=== PATIENT | male | born 1940 | race Caucasian/White ===

== ENCOUNTER 2021-07-25 06:08 | Inpatient (IN) | payer OTHER, MEDICARE ==
[2021-07-20 16:30] LABS: BASOPHILS # (AUTO) 0.1 X10'3 (0-0.2); BASOPHILS % (AUTO) 1.7 % (0-1); EOSINOPHILS # (AUTO) 0.1 X10'3 (0-0.9); EOSINOPHILS % (AUTO) 2.5 % (0-6); LYMPHOCYTES # (AUTO) 1.5 X10'3 (1.1-4.8); LYMPHOCYTES % (AUTO) 29.4 % (21-51); MEAN CORPUSCULAR HEMOGLOBIN 25.9 PG (27.0-31.0); MEAN CORPUSCULAR HGB CONC 33.4 g/dL (33.0-36.5); MEAN CORPUSCULAR VOLUME 77.4 FL (78-98); MEAN PLATELET VOLUME 7.7 FL (7.4-10.4); MONOCYTES # (AUTO) 0.5 X10'3 (0-0.9); MONOCYTES % (AUTO) 8.8 % (2-12); NEUTROPHILS % (AUTO) 57.6 % (42-75); PRE OP HEMATOCRIT 40.5 % (42.0-52.0); PRE OP HEMOGLOBIN 13.5 g/dL (14.0-17.9); PRE OP PLATELET COUNT 220 X10'3 (140-440); RED BLOOD COUNT 5.23 X10'6 (4.70-6.10); RED CELL DISTRIBUTION WIDTH 27.1 % (11.5-14.5)
[2021-07-20 16:41] LABS: ALBUMIN 3.8 G/DL (3.4-5.0); ALBUMIN/GLOBULIN RATIO 1.1 (1.1-1.5); ALKALINE PHOSPHATASE 70 IU/L (46-116); BLOOD UREA NITROGEN 23 MG/DL (7-18); BUN/CREATININE RATIO 12.3 (5.4-32.0); CALCIUM 9.1 MG/DL (8.5-10.1); CHLORIDE 105 MMOL/L (99-107); CREATININE 1.87 MG/DL (0.60-1.10); PRE OP ALT 29 U/L (30-65); PRE OP ANION GAP 10 (8-16); PRE OP AST 21 U/L (10-37); PRE OP BILIRUB, TOTAL 0.3 MG/DL (0.0-1.0); PRE OP GLUCOSE 95 MG/DL (70-104); PRE OP POTASSIUM 4.3 MMOL/L (3.4-5.1); PRE OP SODIUM 138 MMOL/L (135-145); TOTAL CARBON DIOXIDE 22.8 MMOL/L (24-32); TOTAL PROTEIN 7.2 G/DL (6.4-8.2); eGFR 35 ML/MIN
[2021-07-20 19:33] LABS: PLATELET ESTIMATE NORMAL
[2021-07-20 19:34] LABS: ANISOCYTOSIS 3+; MICROCYTOSIS 1+
[2021-07-20 19:35] LABS: ELLIPTOCYTES FEW; SCHISTOCYTES FEW
[2021-07-20 19:36] LABS: LARGE PLATELETS FEW
[~2021-07-25] VITALS: Ht 170.2 cm; Wt 168.0 kg
[2021-07-25] VITALS (29 sets, daily range): BP systolic 90–130; BP diastolic 38–78
[~2021-07-25 06:08] MED LIST: ASPI-1071 PO; FERR-119 PO; cefoxitin sod inj 2,000 MG in dextrose 5%-water 100 ML IV ONE; famotidine 20mg tablet PO ONE; ringers solution, lacted 1,000 ML IV SCH
[2021-07-25] MEDS ORDERED: fentaNYL/PF 50MCG/1 ML 2ML syringe ONE (07:16)
[2021-07-25] MEDS ORDERED: MIDAZolam 1 MG/ML 5ML VIAL ONE (07:16)
[2021-07-25 08:02] LABS: ALANINE AMINOTRANSFERASE 8 U/L (12-78); ALBUMIN 3.3 G/DL (3.4-5.0); ALBUMIN/GLOBULIN RATIO 1.1 (1.1-1.5); ALKALINE PHOSPHATASE 59 IU/L (46-116); ANION GAP 8 (8-16); ASPARTATE AMINO TRANSFERASE 15 U/L (10-37); BILIRUBIN,TOTAL 0.4 MG/DL (0.1-1.0); BLOOD UREA NITROGEN 20 MG/DL (7-18); BUN/CREATININE RATIO 11.5 (5.4-32.0); CALCIUM 9.1 MG/DL (8.5-10.1); CHLORIDE 109 MMOL/L (99-107); CREATININE 1.74 MG/DL (0.60-1.10); GLUCOSE 95 MG/DL (70-104); POTASSIUM 4.1 MMOL/L (3.5-5.1); SODIUM 142 MMOL/L (135-145); TOTAL CARBON DIOXIDE 24.8 MMOL/L (24-32); TOTAL PROTEIN 6.4 G/DL (6.4-8.2); eGFR 38 ML/MIN
[2021-07-25] MEDS ORDERED: proCHLORperazine 10 MG/2 ml inj IV PRN (08:40)
[2021-07-25] MEDS ORDERED: ondansetron/PF 4mg/2ml inj IV PRN ×2 (08:40→15:20)
[2021-07-25] MEDS ORDERED: morphine 4 MG/ML inj SYRINge IV PRN (08:40)
[2021-07-25] MEDS ORDERED: meperidine/PF 25mg/ml syringe IV PRN ×3 (08:40)
[2021-07-25] MEDS ORDERED: morphine 2 MG/ML inj. syringe IV PRN (08:40)
[2021-07-25] MEDS ORDERED: ringers solution, lacted 1,000 ML IV SCH (08:40)
--- NOTE | 2021-07-25 09:55 | NUR ---
RECEIVED PT FROM GI NURSE TO 246A VIA [facility]. SLEEPING, AWAKENS EASILY. FOLLOWS COMMANDS AND ANSWERS QUESTIONS APPROPRIATELY. VSS (97/55, 46, 15, 100% RA). ALON AT THE BEDSIDE. IV PATENT RT WRIST WITH LR 50MLS/HR ON THE PUMP.
[2021-07-25] MEDS ORDERED: LIDOcaine 1% 30ml preserv. free vial ONE (10:19)
[2021-07-25] MEDS ORDERED: BUPIVAcaine/PF 2.5 mg/ml (0.25%) 30ml vial ONE (10:19)
[2021-07-25] MEDS ORDERED: BUPIVAcaine/PF 2.5mg/ml (0.25%) 10ml vial ONE (10:20)
[2021-07-25] MEDS ORDERED: BUPIVACAINE liposomal/PF 13.3 MG/ML vial IM ONE (10:20)
[2021-07-25] MEDS ORDERED: midazolam 1 mg/ML 2ml injection ONE (10:25)
[2021-07-25] MEDS ORDERED: fentaNYL /PF 50mcg/ml 5ml ampule ONE (10:26)
[2021-07-25] MEDS ORDERED: propofol inj 20 ML IV ONE (11:00)
[2021-07-25] MEDS ORDERED: LIDOcaine 2% (20mg/ml) 5ml vial ONE (11:00)
[2021-07-25] MEDS ORDERED: dexamethasone sod phosphate 4mg/ml inj. ONE (11:12)
[2021-07-25] MEDS ORDERED: desflurane 240ml liquid inh. IH ONE (11:12)
[2021-07-25] MEDS ORDERED: rocuronium 10mg/ml inj IV ONE (11:25)
[2021-07-25] MEDS ORDERED: ondansetron/PF 4mg/2ml inj ONE (14:28)
[2021-07-25] MEDS ORDERED: acetaminophen 1,000mg/100ml IV 100 ML IV ONE (14:46)
--- NOTE | 2021-07-25 15:03 | NUR ---
Received from OR via BED IN STABLE CONDITION , accompanied by Anesthesiologist and GEAR MILLING MACHINE SET UP OPERATOR report given by GEAR MILLING MACHINE SET UP OPERATOR AND Anesthesiolgist. Addendum: 07/25/21 at 1522 by Nilda Grossman RN Amended: Links added.
[2021-07-25] MEDS ORDERED: naloxone 0.4 mg/ml inj IV PRN (15:20)
[2021-07-25] MEDS: HYDROmorph./NS 0.2 mg/ml CADD 100 ML IV SCH ×5 (16:25→23:05)
--- NOTE | 2021-07-25 17:23 | NUR ---
PATIENT DISCHARGED FROM PACU IN STABLE CONDITION AFTER REPORT GIVEN. PATIENT WAS TRANSFERRED VIA BED TO ROOM 356A WITH TEACHERS ASSISTANT AND RADHA. Addendum: 07/25/21 at 1831 by Nilda Grossman RN Amended: Links added.
--- NOTE | 2021-07-25 18:00 | NUR ---
Patient in room SOTO 356. I have received report from LEOBARDO Ventura and had the opportunity to ask questions and assume patient care.
[2021-07-25] MEDS: Potassium Cl inj 20 MEQ in ringers solution, lacted 1,000 ML IV SCH ×2 (23:01→23:25)
[2021-07-26 00:03] VITALS: BP 117/56
[2021-07-26] MEDS: HYDROmorph./NS 0.2 mg/ml CADD 100 ML IV SCH ×12 (01:00→23:00)
[2021-07-26 04:00] VITALS: BP 111/48
--- NOTE | 2021-07-26 06:06 | NUR ---
I agree with LEOBARDO Robersonspooler operator, assessments, and report given to LEOBARDO Kaye
--- NOTE | 2021-07-26 06:20 | NUR ---
Patient in room SOTO 356. I have received report from RACHELLE BOOTH and had the opportunity to ask questions and assume patient care.
[2021-07-26 06:28] LABS: BASOPHILS % (AUTO) 0.1 % (0-1); EOSINOPHILS % (AUTO) 0 % (0-6); HEMATOCRIT 38.7 % (42.0-52.0); HEMOGLOBIN 12.9 g/dl (14.0-17.9); LYMPHOCYTES # (AUTO) 0.6 X10'3 (1.1-4.8); LYMPHOCYTES % (AUTO) 6.3 % (21-51); MEAN CORPUSCULAR HEMOGLOBIN 26.3 PG (27.0-31.0); MEAN CORPUSCULAR HGB CONC 33.4 g/dL (33.0-36.5); MEAN CORPUSCULAR VOLUME 78.6 FL (78-98); MEAN PLATELET VOLUME 8.8 FL (7.4-10.4); MONOCYTES # (AUTO) 0.7 X10'3 (0-0.9); MONOCYTES % (AUTO) 7.6 % (2-12); NEUTROPHILS # (AUTO) 7.7 X10'3 (1.8-7.7); PLATELET COUNT 190 X10'3 (140-440); RED BLOOD COUNT 4.93 X10'6 (4.70-6.10); RED CELL DISTRIBUTION WIDTH 26.7 % (11.5-14.5)
--- NOTE | 2021-07-26 06:37 | NUR ---
Problems reprioritized. Patient report given, questions answered & plan of care reviewed with LEOBARDO Kaye.
[2021-07-26 06:48] LABS: ALBUMIN 2.6 G/DL (3.4-5.0); ANION GAP 12 (8-16); BLOOD UREA NITROGEN 19 MG/DL (7-18); BUN/CREATININE RATIO 13.4 (5.4-32.0); CALCIUM 8.2 MG/DL (8.5-10.1); CHLORIDE 109 MMOL/L (99-107); CREATININE 1.42 MG/DL (0.60-1.10); GLUCOSE 174 MG/DL (70-104); POTASSIUM 3.9 MMOL/L (3.5-5.1); SODIUM 142 MMOL/L (135-145); TOTAL CARBON DIOXIDE 20.6 MMOL/L (24-32); eGFR 48 ML/MIN
[2021-07-26 08:00] LABS: ANISOCYTOSIS 3+; MICROCYTOSIS 1+; PLATELET ESTIMATE NORMAL
[2021-07-26 08:01] LABS: ELLIPTOCYTES FEW
[2021-07-26 08:02] LABS: POIKILOCYTOSIS 1+
[2021-07-26 08:03] LABS: LARGE PLATELETS FEW
[2021-07-26 08:04] LABS: SCHISTOCYTES FEW
[2021-07-26] MEDS: enoxaparin 40mg/0.4ml syringe SQ SCH (08:13)
[2021-07-26] MEDS: pantoprazole IV 40 MG in dextrose 5%-water 100 ML IV SCH (08:13)
[2021-07-26] MEDS: Potassium Cl inj 20 MEQ in ringers solution, lacted 1,000 ML IV SCH (08:13)
[2021-07-26] MEDS: aspirin 81mg, enteric-coated 1 TAB TABLET.DR PO SCH (08:13)
[2021-07-26 09:01] VITALS: BP 108/54
[2021-07-26] MEDS: potassium 20mEq/D5LR 1,000 ML IV SCH ×2 (09:30→17:48)
[2021-07-26 11:55] VITALS: BP 98/42
--- NOTE | 2021-07-26 18:23 | NUR ---
Problems reprioritized. Patient report given, questions answered & plan of care reviewed with Rosaura singh.
[2021-07-26 20:00] VITALS: BP 112/53
[2021-07-26 23:38] VITALS: BP 112/53
[2021-07-27] VITALS: BP 108/57
[2021-07-27] MEDS: HYDROmorph./NS 0.2 mg/ml CADD 100 ML IV SCH ×12 (01:00→23:00)
[2021-07-27] MEDS: potassium 20mEq/D5LR 1,000 ML IV SCH ×3 (01:30→12:32)
--- NOTE | 2021-07-27 05:37 | NUR ---
Arza discontinued , monitor for voiding .
--- NOTE | 2021-07-27 06:19 | NUR ---
Report given , questions answered and plan of care reviewed with Belem BOOTH .
[2021-07-27 06:30] LABS: BASOPHILS % (AUTO) 0.2 % (0-1); EOSINOPHILS % (AUTO) 0.1 % (0-6); HEMATOCRIT 36.7 % (42.0-52.0); HEMOGLOBIN 12.2 g/dl (14.0-17.9); LYMPHOCYTES # (AUTO) 0.9 X10'3 (1.1-4.8); LYMPHOCYTES % (AUTO) 12.8 % (21-51); MEAN CORPUSCULAR HGB CONC 33.3 g/dL (33.0-36.5); MEAN CORPUSCULAR VOLUME 78.3 FL (78-98); MEAN PLATELET VOLUME 8.1 FL (7.4-10.4); MONOCYTES # (AUTO) 0.6 X10'3 (0-0.9); MONOCYTES % (AUTO) 8.2 % (2-12); NEUTROPHILS # (AUTO) 5.8 X10'3 (1.8-7.7); NEUTROPHILS % (AUTO) 78.7 % (42-75); PLATELET COUNT 177 X10'3 (140-440); RED BLOOD COUNT 4.68 X10'6 (4.70-6.10); RED CELL DISTRIBUTION WIDTH 27.5 % (11.5-14.5); WHITE BLOOD COUNT 7.4 X10'3 (4.5-11.0)
--- NOTE | 2021-07-27 06:38 | NUR ---
Patient in room SOTO 356. I have received report from rigo singh and had the opportunity to ask questions and assume patient care.
[2021-07-27 06:41] LABS: ALBUMIN 2.2 G/DL (3.4-5.0); ANION GAP 9 (8-16); BLOOD UREA NITROGEN 17 MG/DL (7-18); BUN/CREATININE RATIO 12.5 (5.4-32.0); CALCIUM 8.4 MG/DL (8.5-10.1); CHLORIDE 108 MMOL/L (99-107); CREATININE 1.36 MG/DL (0.60-1.10); GLUCOSE 127 MG/DL (70-104); POTASSIUM 3.3 MMOL/L (3.5-5.1); SODIUM 142 MMOL/L (135-145); eGFR 50 ML/MIN
[2021-07-27 07:04] VITALS: BP 122/45
[2021-07-27] MEDS: pantoprazole IV 40 MG in dextrose 5%-water 100 ML IV SCH (07:30)
[2021-07-27] MEDS: aspirin 81mg, enteric-coated 1 TAB TABLET.DR PO SCH (07:30)
[2021-07-27] MEDS: enoxaparin 40mg/0.4ml syringe SQ SCH (07:30)
[2021-07-27] MEDS ORDERED: Potassium Cl inj 40 MEQ in sodium chloride 0.45% 500ml 500 ML IV ONE (11:40)
[2021-07-27] MEDS: potassium CL 10mEq/100ml bag 100 ML IV SCH ×4 (12:30→17:44)
--- NOTE | 2021-07-27 12:57 | NUR ---
MIDLINE IODOFORM PACKING DCd AND WOUND LEFT OPEN TO AIR PER DR ARORA ORDER, COLOSTOMY AND ILEOSTOMY PACKED WITH MOIST GAUZE PER ORDER.
[2021-07-27 13:09] VITALS: BP 123/53
--- NOTE | 2021-07-27 18:17 | NUR ---
Problems reprioritized. Patient report given, questions answered & plan of care reviewed with SALAS BOOTH.
[2021-07-27 20:00] VITALS: BP 141/62
[2021-07-28] VITALS: BP 128/51
[2021-07-28] MEDS: potassium 20mEq/D5LR 1,000 ML IV SCH ×3 (00:53→17:57)
[2021-07-28] MEDS: HYDROmorph./NS 0.2 mg/ml CADD 100 ML IV SCH ×12 (01:00→23:00)
[2021-07-28] MEDS: CADD PCA waste documentation MC PRN (02:36)
--- NOTE | 2021-07-28 06:37 | NUR ---
rEPORT GIVEN , QUESTIONS ANSWERED AND PLAN OF CARE REVIEWED WITH Ck singh .
--- NOTE | 2021-07-28 06:37 | NUR ---
Patient in room SOTO 356. I have received report from Rosaura BOOTH and had the opportunity to ask questions and assume patient care.
[2021-07-28 06:42] LABS: BASOPHILS % (AUTO) 0.2 % (0-1); EOSINOPHILS % (AUTO) 0 % (0-6); HEMATOCRIT 37.6 % (42.0-52.0); HEMOGLOBIN 12.4 g/dl (14.0-17.9); LYMPHOCYTES # (AUTO) 1.1 X10'3 (1.1-4.8); LYMPHOCYTES % (AUTO) 14.7 % (21-51); MEAN CORPUSCULAR HEMOGLOBIN 25.9 PG (27.0-31.0); MEAN CORPUSCULAR VOLUME 78.4 FL (78-98); MEAN PLATELET VOLUME 8.1 FL (7.4-10.4); MONOCYTES # (AUTO) 0.7 X10'3 (0-0.9); MONOCYTES % (AUTO) 8.6 % (2-12); NEUTROPHILS % (AUTO) 76.5 % (42-75); PLATELET COUNT 195 X10'3 (140-440); RED CELL DISTRIBUTION WIDTH 26.8 % (11.5-14.5); WHITE BLOOD COUNT 7.8 X10'3 (4.5-11.0)
[2021-07-28 06:55] LABS: ALBUMIN 2.1 G/DL (3.4-5.0); ANION GAP 6 (8-16); BLOOD UREA NITROGEN 13 MG/DL (7-18); BUN/CREATININE RATIO 10.3 (5.4-32.0); CALCIUM 8.4 MG/DL (8.5-10.1); CHLORIDE 104 MMOL/L (99-107); CREATININE 1.26 MG/DL (0.60-1.10); GLUCOSE 142 MG/DL (70-104); MAGNESIUM 1.5 MG/DL (1.5-2.4); POTASSIUM 3.1 MMOL/L (3.5-5.1); SODIUM 137 MMOL/L (135-145); TOTAL CARBON DIOXIDE 27.5 MMOL/L (24-32); eGFR 55 ML/MIN
[2021-07-28 07:00] VITALS: BP 129/54
[2021-07-28] MEDS: aspirin 81mg, enteric-coated 1 TAB TABLET.DR PO SCH (09:28)
[2021-07-28] MEDS: pantoprazole IV 40 MG in dextrose 5%-water 100 ML IV SCH (09:28)
[2021-07-28] MEDS: enoxaparin 40mg/0.4ml syringe SQ SCH (09:29)
[2021-07-28 11:00] VITALS: BP 116/56
[2021-07-28] MEDS: potassium CL 10mEq/100ml bag 100 ML IV SCH ×4 (11:07→14:12)
--- NOTE | 2021-07-28 17:32 | NUR ---
Wound dressing on the right abdomen was changed due to dressing soaked with serosanguinous drainage.
--- NOTE | 2021-07-28 18:35 | NUR ---
Problems reprioritized. Patient report given, questions answered & plan of care reviewed with Rosaura BOOTH.
[2021-07-28 19:01] VITALS: BP 123/55
[2021-07-29 00:02] VITALS: BP 131/55
[2021-07-29] MEDS: HYDROmorph./NS 0.2 mg/ml CADD 100 ML IV SCH ×5 (01:00→08:59)
[2021-07-29] MEDS: potassium 20mEq/D5LR 1,000 ML IV SCH ×2 (01:30→08:49)
[2021-07-29 06:24] LABS: BASOPHILS % (AUTO) 0.3 % (0-1); EOSINOPHILS # (AUTO) 0.1 X10'3 (0-0.9); EOSINOPHILS % (AUTO) 1.9 % (0-6); HEMATOCRIT 40.8 % (42.0-52.0); HEMOGLOBIN 13.7 g/dl (14.0-17.9); MEAN CORPUSCULAR HEMOGLOBIN 26.5 PG (27.0-31.0); MEAN CORPUSCULAR HGB CONC 33.5 g/dL (33.0-36.5); MEAN CORPUSCULAR VOLUME 79.1 FL (78-98); MEAN PLATELET VOLUME 8.6 FL (7.4-10.4); MONOCYTES # (AUTO) 0.7 X10'3 (0-0.9); MONOCYTES % (AUTO) 10.2 % (2-12); NEUTROPHILS % (AUTO) 72.6 % (42-75); PLATELET COUNT 196 X10'3 (140-440); RED BLOOD COUNT 5.16 X10'6 (4.70-6.10); RED CELL DISTRIBUTION WIDTH 26.5 % (11.5-14.5); WHITE BLOOD COUNT 6.9 X10'3 (4.5-11.0)
[2021-07-29 06:31] LABS: ALBUMIN 2.1 G/DL (3.4-5.0); ANION GAP 5 (8-16); BLOOD UREA NITROGEN 11 MG/DL (7-18); BUN/CREATININE RATIO 9.2 (5.4-32.0); CALCIUM 8.7 MG/DL (8.5-10.1); CHLORIDE 103 MMOL/L (99-107); CREATININE 1.19 MG/DL (0.60-1.10); GLUCOSE 111 MG/DL (70-104); POTASSIUM 4.1 MMOL/L (3.5-5.1); SODIUM 137 MMOL/L (135-145); TOTAL CARBON DIOXIDE 28.7 MMOL/L (24-32); eGFR 59 ML/MIN
--- NOTE | 2021-07-29 06:40 | NUR ---
Report given , questions answered and plan of care reviewed with Casie BOOTH .
--- NOTE | 2021-07-29 06:50 | NUR ---
Patient in room SOTO 356. I have received report from LEOBARDO Kaplan and had the opportunity to ask questions and assume patient care.
[2021-07-29 07:00] VITALS: BP 114/76
[2021-07-29] MEDS: aspirin 81mg, enteric-coated 1 TAB TABLET.DR PO SCH (08:46)
[2021-07-29] MEDS: enoxaparin 40mg/0.4ml syringe SQ SCH (08:46)
[2021-07-29] MEDS: pantoprazole IV 40 MG in dextrose 5%-water 100 ML IV SCH (08:47)
[2021-07-29 11:00] VITALS: BP 102/43
[2021-07-29] MEDS ORDERED: levoFLOXACIN 500mg tablet PO SCH (11:00)
[2021-07-29] MEDS ORDERED: potassium Cl 20 mEq SR tablet PO PRN (11:45)
[2021-07-29] MEDS ORDERED: potassium CL 10mEq/100ml bag 100 ML IV PRN (11:45)
[2021-07-29] MEDS ORDERED: magnesium Cl slow-release 64mg tablet PO PRN (11:45)
[2021-07-29] MEDS ORDERED: magnesium 2GM in 50ml NS 50 ML IV PRN (11:45)
[2021-07-29] MEDS ORDERED: magnesium 4gm in 100ml NS 100 ML IV PRN (11:45)
[2021-07-29] MEDS: normal saline 1000ml 1,000 ML IV SCH ×2 (11:55→21:30)
[2021-07-29] MEDS: CADD PCA waste documentation MC PRN (11:57)
[2021-07-29 12:21] LABS: MAGNESIUM 1.6 MG/DL (1.5-2.4)
[2021-07-29] MEDS: HYDROcodone/acetaminophen 5mg/325mg tablet PO PRN ×2 (13:51→17:58)
[2021-07-29] MEDS: HYDROmorphone inj. 0.5 MG/0.5 ML DISP.SYRIN IV PRN ×2 (15:06→20:27)
--- NOTE | 2021-07-29 18:30 | NUR ---
Problems reprioritized. Patient report given, questions answered & plan of care reviewed with LEOBARDO Kaplan.
[2021-07-29 20:00] VITALS: BP 113/52
[2021-07-29] MEDS: K and/or MAG REPLACEMENT MC SCH (20:00)
--- NOTE | 2021-07-29 23:17 | NUR ---
PATIENT HAD A LARGE LIQUID STOOL TONIGHT , DARK BROWNISH GREEN , NO S/S OF BLEEDING . PATIENT TRANSFERRED FROM THE BED TO THE BEDSIDE COMMODE WITH STANDBY ASSIST , DENIES PAIN , NO DIZZINESS OR VERTIGO NOTED .
[2021-07-30] VITALS (18 sets, daily range): BP systolic 94–143; BP diastolic 45–77
--- NOTE | 2021-07-30 05:55 | NUR ---
PATIENT CALLED THIS TO THE ROOM ANS SAID HIS SHEETS WERE WET , DARK BROWN DRAINAGE WAS OBSERVED ONHIS SHEETS . brOWN DRAINAGE WAS OBSERVED SEEPING FROM HIS MIDLINE INCISION , IT SMELLED LIKE FECAL MATTER . DR HURD MADE AWARE and he will see patient in am .Midline covered with clean dressing .
[2021-07-30 06:26] LABS: ALBUMIN 1.9 G/DL (3.4-5.0); ANION GAP 9 (8-16); BLOOD UREA NITROGEN 24 MG/DL (7-18); BUN/CREATININE RATIO 17.6 (5.4-32.0); CHLORIDE 106 MMOL/L (99-107); CREATININE 1.36 MG/DL (0.60-1.10); GLUCOSE 115 MG/DL (70-104); MAGNESIUM 1.6 MG/DL (1.5-2.4); POTASSIUM 3.3 MMOL/L (3.5-5.1); SODIUM 141 MMOL/L (135-145); TOTAL CARBON DIOXIDE 26.4 MMOL/L (24-32); eGFR 50 ML/MIN
--- NOTE | 2021-07-30 06:30 | NUR ---
Patient in room PCU 3026. I have received report from LEOBARDO Kaplan and had the opportunity to ask questions and assume patient care.
[2021-07-30 06:43] LABS: HEMOGLOBIN 13.2 g/dl (14.0-17.9); RED CELL DISTRIBUTION WIDTH 26.1 % (11.5-14.5)
[2021-07-30 06:44] LABS: BASOPHILS % (AUTO) 0.2 % (0-1); EOSINOPHILS % (AUTO) 0.7 % (0-6); HEMATOCRIT 39.4 % (42.0-52.0); LYMPHOCYTES # (AUTO) 0.7 X10'3 (1.1-4.8); LYMPHOCYTES % (AUTO) 15.6 % (21-51); MEAN CORPUSCULAR HEMOGLOBIN 26.5 PG (27.0-31.0); MEAN CORPUSCULAR HGB CONC 33.4 g/dL (33.0-36.5); MEAN CORPUSCULAR VOLUME 79.2 FL (78-98); MEAN PLATELET VOLUME 8.5 FL (7.4-10.4); MONOCYTES # (AUTO) 0.6 X10'3 (0-0.9); MONOCYTES % (AUTO) 13.4 % (2-12); NEUTROPHILS # (AUTO) 3.3 X10'3 (1.8-7.7); NEUTROPHILS % (AUTO) 70.1 % (42-75); PLATELET COUNT 221 X10'3 (140-440); RED BLOOD COUNT 4.97 X10'6 (4.70-6.10); WHITE BLOOD COUNT 4.7 X10'3 (4.5-11.0)
[2021-07-30] MEDS: K and/or MAG REPLACEMENT MC SCH ×2 (07:28→20:14)
[2021-07-30] MEDS: normal saline 1000ml 1,000 ML IV SCH ×3 (07:32→21:30)
[2021-07-30] MEDS: pantoprazole IV 40 MG in dextrose 5%-water 100 ML IV SCH (07:34)
[2021-07-30] MEDS: aspirin 81mg, enteric-coated 1 TAB TABLET.DR PO SCH (07:34)
[2021-07-30] MEDS: potassium Cl 20 mEq SR tablet PO PRN ×2 (07:39→20:11)
[2021-07-30] MEDS: enoxaparin 40mg/0.4ml syringe SQ SCH (07:40)
[2021-07-30 07:47] LABS: PLATELET ESTIMATE NORMAL
[2021-07-30 07:48] LABS: ANISOCYTOSIS 3+; HYPOCHROMASIA 1+; MICROCYTOSIS 1+
[2021-07-30 07:49] LABS: POLYCHROMASIA FEW; SCHISTOCYTES FEW
[2021-07-30 10:01] LABS: APTT 33 SECONDS (22-32)
[2021-07-30 10:03] LABS: ALANINE AMINOTRANSFERASE 22 U/L (12-78); ALBUMIN 1.9 G/DL (3.4-5.0); ALBUMIN/GLOBULIN RATIO 0.6 (1.1-1.5); ALKALINE PHOSPHATASE 75 IU/L (46-116); ASPARTATE AMINO TRANSFERASE 19 U/L (10-37); BILIRUBIN,TOTAL 0.7 MG/DL (0.1-1.0); BLOOD UREA NITROGEN 24 MG/DL (7-18); BUN/CREATININE RATIO 18.3 (5.4-32.0); CALCIUM 7.8 MG/DL (8.5-10.1); CHLORIDE 106 MMOL/L (99-107); CREATININE 1.31 MG/DL (0.60-1.10); GLUCOSE 109 MG/DL (70-104); POTASSIUM 3.2 MMOL/L (3.5-5.1); TOTAL CARBON DIOXIDE 28.5 MMOL/L (24-32); TOTAL PROTEIN 5.3 G/DL (6.4-8.2); eGFR 52 ML/MIN
[2021-07-30 10:07] LABS: ANION GAP 7 (8-16); SODIUM 141 MMOL/L (135-145)
--- NOTE | 2021-07-30 10:43 | NUR ---
Initial: Pt admit for colostomy and ileostomy takedown which was performed 07/25 per EMR. Per I&O pt with 3 BMs 07/29. drywall taper helper indicates pt with large liquid stool 07/29. Pt continues on ice chips, sips, and popsicles for diet order, now day 5 with insufficient nutrition intake r/t diet order. Recommend diet advancement to low fiber as medically indicated as bowel function appears to be improving at this time, otherwise pt would benefit from nutrition support IF PO diet unable to be advanced. Will continue to follow closely and make recommendations as appropriate. Recommendations: 1) Advance to low fiber diet as medically indicated in view of recent GI surgery 2) Initiate nutrition support IF PO diet unable to be advanced; currently 5 days with insufficient nutrition 3) Bowel care per MD 4) Weekly scaled weights Addendum: 07/30/21 at [address] Amended: Links added.
--- NOTE | 2021-07-30 10:45 | NUR ---
Report given to OR bellows charger assembler
[2021-07-30] MEDS: piperacillin/tazo 3.375gm/50ml 50 ML IV SCH ×3 (10:53→23:42)
--- NOTE | 2021-07-30 10:59 | NUR ---
BG pre surg 86
[2021-07-30] MEDS ORDERED: propofol inj 20 ML IV ONE (11:17)
[2021-07-30] MEDS ORDERED: rocuronium 10mg/ml inj IV ONE (11:17)
[2021-07-30] MEDS ORDERED: midazolam 1 mg/ML 2ml injection ONE (11:17)
[2021-07-30] MEDS ORDERED: fentaNYL /PF 50mcg/ml 5ml ampule ONE (11:17)
[2021-07-30] MEDS ORDERED: neostigmine methylsulfate 1 MG/ML 10ml vial ONE (12:22)
[2021-07-30] MEDS ORDERED: glycopyrrolate 0.2mg/ml inj ONE (12:36)
--- NOTE | 2021-07-30 12:40 | NUR ---
Received from OR via , accompanied by Anesthesiologist DR MAK and report given by Anesthesiolgist. PT PTESENTS WITH 20 G RIGHT AC, 18G RUFGR FOREARM, ABD DRESSING DRY AND INTACT, HR 143 DR MAK AT BEDSIDE GAVE 5MG METOPROLOL WITH HR NOW DOWN IN TO THE 70'S. VSS. Addendum: 07/30/21 at 1259 by Luli Márquez RN, RN Amended: Links added.
[2021-07-30] MEDS ORDERED: metoprolol tartrate 1mg/ml inj IV ONE (12:44)
[2021-07-30] MEDS ORDERED: meperidine/PF 25mg/ml syringe IV PRN ×2 (12:55)
[2021-07-30] MEDS ORDERED: ondansetron/PF 4mg/2ml inj IV PRN (12:55)
[2021-07-30] MEDS ORDERED: morphine 2 MG/ML inj. syringe IV PRN (12:55)
[2021-07-30] MEDS ORDERED: labetalol 20mg/4ml (5mg/ml) syringe IV PRN (12:55)
[2021-07-30] MEDS ORDERED: proCHLORperazine 10 MG/2 ml inj IV PRN (12:55)
[2021-07-30] MEDS ORDERED: ringers solution, lacted 1,000 ML IV SCH (12:55)
[2021-07-30] MEDS ORDERED: morphine 4 MG/ML inj SYRINge IV PRN (12:55)
[2021-07-30] MEDS: meperidine/PF 25mg/ml syringe IV PRN ×3 (13:10→14:29)
--- NOTE | 2021-07-30 13:38 | NUR ---
PER DR SWETHA MYLES FOR PT TO GO TO [facility] ON TELE. PT CURRENTLY IN [facility]. PULL TAB DEALER NOTIFIED AND WILL BE PUTTING IN THE NEW ORDERS FOR PT TO GO TO [facility]. PULL TAB DEALER TO CALL BACK FOR NEW ROOM ASSIGNMENT. Addendum: 07/30/21 at 1349 by Luli Márquez RN, RN Amended: Links added.
--- NOTE | 2021-07-30 14:00 | NUR ---
DR SANTAMARIA AT BEDSIDE EVALUATING PT. OLK FOR PT TO GO TO PCU DUE TO PVC'S BIGEMINY. Addendum: 07/30/21 at 1500 by Luli Márquez RN, RN Amended: Links added.
--- NOTE | 2021-07-30 14:50 | NUR ---
Report called to receiving nurse KISHA BOOTH. PT HAVING PVC'S BIGEMINY. PT'S TRANSFERED FROM ROOM 356 SURGICAL TO PCU 3026B.Transferred via HOSPITAL BED WITH MONITOR. PT BELONGINGS TRANSFERED FROM SURGICAL TO 3026B. Belongings. BED IN LOW LOCKED POSTION, PT GIVEN CALL LIGHT. Special Issues communicated to receiving nurse. Addendum: 07/30/21 at 1500 by Luli Márquez RN, RN Amended: Links added.
[2021-07-30] MEDS: HYDROmorphone inj. 0.5 MG/0.5 ML DISP.SYRIN IV PRN ×2 (16:30→21:25)
[2021-07-30] MEDS: HYDROcodone/acetaminophen 5mg/325mg tablet PO PRN ×2 (19:57→23:56)
[2021-07-31 02:00] VITALS: BP 117/49
[2021-07-31] MEDS: HYDROmorphone inj. 0.5 MG/0.5 ML DISP.SYRIN IV PRN (03:43)
[2021-07-31] MEDS: HYDROcodone/acetaminophen 5mg/325mg tablet PO PRN (05:29)
[2021-07-31 06:00] VITALS: BP 106/50
[2021-07-31] MEDS: pantoprazole IV 40 MG in dextrose 5%-water 100 ML IV SCH (07:28)
[2021-07-31] MEDS: aspirin 81mg, enteric-coated 1 TAB TABLET.DR PO SCH (07:29)
[2021-07-31] MEDS: enoxaparin 40mg/0.4ml syringe SQ SCH (07:30)
[2021-07-31] MEDS: potassium Cl 20 mEq SR tablet PO PRN (07:35)
[2021-07-31] MEDS: K and/or MAG REPLACEMENT MC SCH ×2 (08:00→20:33)
[2021-07-31] MEDS: piperacillin/tazo 3.375gm/50ml 50 ML IV SCH ×2 (08:00→16:38)
[2021-07-31] MEDS ORDERED: CADD PCA waste documentation MC PRN (09:10)
[2021-07-31] MEDS ORDERED: naloxone 0.4 mg/ml inj IV PRN (09:10)
[2021-07-31] MEDS: HYDROmorph./NS 0.2 mg/ml CADD 100 ML IV SCH ×8 (10:49→23:00)
[2021-07-31 11:00] VITALS: BP 106/45
[2021-07-31] MEDS: normal saline 1000ml 1,000 ML IV SCH (14:35)
[2021-07-31 15:00] VITALS: BP 111/46
[2021-07-31 18:00] VITALS: BP 127/64
[2021-07-31 22:00] VITALS: BP 124/58
[2021-08-01] MEDS: piperacillin/tazo 3.375gm/50ml 50 ML IV SCH ×3 (00:30→19:21)
[2021-08-01] MEDS: normal saline 1000ml 1,000 ML IV SCH ×3 (00:32→22:42)
[2021-08-01] MEDS: HYDROmorph./NS 0.2 mg/ml CADD 100 ML IV SCH ×12 (01:00→23:00)
[2021-08-01] MEDS: Melatonin 3mg tablet PO PRN (01:23)
[2021-08-01 02:00] VITALS: BP 118/58
[2021-08-01 06:00] VITALS: BP 142/62
[2021-08-01] MEDS: aspirin 81mg, enteric-coated 1 TAB TABLET.DR PO SCH (07:41)
[2021-08-01] MEDS: pantoprazole IV 40 MG in dextrose 5%-water 100 ML IV SCH (07:41)
[2021-08-01] MEDS: enoxaparin 40mg/0.4ml syringe SQ SCH (07:45)
[2021-08-01 09:34] LABS: ALBUMIN 1.9 G/DL (3.4-5.0); ANION GAP 12 (8-16); BLOOD UREA NITROGEN 21 MG/DL (7-18); BUN/CREATININE RATIO 15.7 (5.4-32.0); CALCIUM 8.7 MG/DL (8.5-10.1); CHLORIDE 103 MMOL/L (99-107); CREATININE 1.34 MG/DL (0.60-1.10); GLUCOSE 129 MG/DL (70-104); POTASSIUM 3.3 MMOL/L (3.5-5.1); SODIUM 138 MMOL/L (135-145); TOTAL CARBON DIOXIDE 23.2 MMOL/L (24-32); eGFR 51 ML/MIN
[2021-08-01 09:40] LABS: BASOPHILS % (AUTO) 0 % (0-1); EOSINOPHILS % (AUTO) 0.1 % (0-6); HEMOGLOBIN 13.4 g/dl (14.0-17.9); LYMPHOCYTES # (AUTO) 0.4 X10'3 (1.1-4.8); LYMPHOCYTES % (AUTO) 7.9 % (21-51); MEAN CORPUSCULAR HEMOGLOBIN 26.3 PG (27.0-31.0); MEAN CORPUSCULAR HGB CONC 32.6 g/dL (33.0-36.5); MEAN CORPUSCULAR VOLUME 80.6 FL (78-98); MEAN PLATELET VOLUME 8.8 FL (7.4-10.4); MONOCYTES # (AUTO) 0.3 X10'3 (0-0.9); MONOCYTES % (AUTO) 6.3 % (2-12); NEUTROPHILS # (AUTO) 4.6 X10'3 (1.8-7.7); NEUTROPHILS % (AUTO) 85.7 % (42-75); PLATELET COUNT 244 X10'3 (140-440); RED BLOOD COUNT 5.09 X10'6 (4.70-6.10); RED CELL DISTRIBUTION WIDTH 25.6 % (11.5-14.5); WHITE BLOOD COUNT 5.4 X10'3 (4.5-11.0)
[2021-08-01] MEDS ORDERED: furosemide 40mg/4ml inj IV ONE (09:45)
[2021-08-01 11:00] VITALS: BP 109/48
[2021-08-01] MEDS: albuterol 2.5 MG/3 ML nebule NEB SCH ×4 (11:00→23:00)
[2021-08-01 11:25] LABS: ANISOCYTOSIS 3+; BURR CELLS FEW; ELLIPTOCYTES FEW; HYPOCHROMASIA 1+; PLATELET ESTIMATE NORMAL; POLYCHROMASIA FEW; SCHISTOCYTES FEW; TOTAL CELLS COUNTED 100
[2021-08-01 15:00] VITALS: BP 96/41
[2021-08-01 18:00] VITALS: BP 112/50
[2021-08-01] MEDS ORDERED: potassium Cl 40MEQ/1/2NS 520ml 520 ML IV PRN ×2 (19:30)
[2021-08-01] MEDS: potassium Cl 20 mEq SR tablet PO PRN (19:34)
[2021-08-01] MEDS: K and/or MAG REPLACEMENT MC SCH (19:34)
[2021-08-01 22:00] VITALS: BP 109/42
[2021-08-02] MEDS: piperacillin/tazo 3.375gm/50ml 50 ML IV SCH ×3 (00:57→16:00)
[2021-08-02] MEDS: HYDROmorph./NS 0.2 mg/ml CADD 100 ML IV SCH ×7 (01:00→13:00)
--- NOTE | 2021-08-02 01:14 | NUR ---
2230 Called hospitalist for AFib RVR 140S orders received for cardizem which was started at 2240.
[2021-08-02 02:00] VITALS: BP 100/48
[2021-08-02] MEDS: potassium Cl 20 mEq SR tablet PO PRN ×3 (02:55→17:43)
[2021-08-02] MEDS: albuterol 2.5 MG/3 ML nebule NEB SCH ×6 (03:00→23:00)
[2021-08-02 05:58] LABS: BASOPHILS % (AUTO) 0.1 % (0-1); EOSINOPHILS % (AUTO) 0.1 % (0-6); HEMATOCRIT 34.1 % (42.0-52.0); HEMOGLOBIN 11.2 g/dl (14.0-17.9); LYMPHOCYTES # (AUTO) 0.6 X10'3 (1.1-4.8); LYMPHOCYTES % (AUTO) 6.7 % (21-51); MEAN CORPUSCULAR HEMOGLOBIN 26.3 PG (27.0-31.0); MEAN CORPUSCULAR VOLUME 79.7 FL (78-98); MEAN PLATELET VOLUME 8.1 FL (7.4-10.4); MONOCYTES # (AUTO) 0.5 X10'3 (0-0.9); MONOCYTES % (AUTO) 5.9 % (2-12); NEUTROPHILS # (AUTO) 7.5 X10'3 (1.8-7.7); NEUTROPHILS % (AUTO) 87.2 % (42-75); PLATELET COUNT 243 X10'3 (140-440); RED BLOOD COUNT 4.28 X10'6 (4.70-6.10); RED CELL DISTRIBUTION WIDTH 25.1 % (11.5-14.5); WHITE BLOOD COUNT 8.6 X10'3 (4.5-11.0)
[2021-08-02 06:03] LABS: ALBUMIN 1.6 G/DL (3.4-5.0); ANION GAP 9 (8-16); BLOOD UREA NITROGEN 30 MG/DL (7-18); BUN/CREATININE RATIO 16.7 (5.4-32.0); CALCIUM 8.5 MG/DL (8.5-10.1); CHLORIDE 104 MMOL/L (99-107); GLUCOSE 134 MG/DL (70-104); MAGNESIUM 1.9 MG/DL (1.5-2.4); POTASSIUM 3.2 MMOL/L (3.5-5.1); SODIUM 138 MMOL/L (135-145); eGFR 36 ML/MIN
--- NOTE | 2021-08-02 06:44 | NUR ---
Patient in room PCU 3026. I have received report from RALEIGH RN and had the opportunity to ask questions and assume patient care.
[2021-08-02 07:00] VITALS: BP 119/47
--- NOTE | 2021-08-02 07:07 | NUR ---
Pt received with lt nare NGT, infusing Vital AF and patent. TPN and Lipids infusing, quinn in place, skin teat to lt thigh. Hansel to midline abd dsg well approximated dry and intact, call light in reach, will continue to monitor. Addendum: 08/02/21 at 0711 by Tonie Maxwell RN Please ignore above note wrong patient
--- NOTE | 2021-08-02 07:12 | NUR ---
Pt received AAox4, very drowsy, no distress noted, dilaudid BLANKET FOLDER infusing, call light in reached will continue to monitor
[2021-08-02] MEDS: HYDROcodone/acetaminophen 5mg/325mg tablet PO PRN ×4 (07:36→21:54)
[2021-08-02] MEDS: aspirin 81mg, enteric-coated 1 TAB TABLET.DR PO SCH (07:39)
[2021-08-02] MEDS: enoxaparin 40mg/0.4ml syringe SQ SCH (07:39)
[2021-08-02] MEDS: pantoprazole IV 40 MG in dextrose 5%-water 100 ML IV SCH (07:39)
[2021-08-02] MEDS: K and/or MAG REPLACEMENT MC SCH ×2 (08:00→20:00)
[2021-08-02] MEDS ORDERED: magnesium hydroxide 30ml (MOM) UD suspension PO ONE (08:25)
[2021-08-02 11:54] VITALS: BP 113/13
[2021-08-02] MEDS ORDERED: furosemide 40mg/4ml inj IV ONE (14:35)
--- NOTE | 2021-08-02 14:50 | NUR ---
Reassessment: Pt advanced to full liquids this AM after 4 clear liquid meals starting 07/31 WS. PO 25-50% avg liquid meals partially meeting needs. Noted nausea in care trends though no nausea per most recent surgeon note. RD recommends Ensure Enlive TIDWM for additional kcals/protein; MD notified. Pt 3 BM's 07/30 w/ no colostomy volume documented in EMR. Given initial 6 days no nutrition w/ current limited diet/PO trends, and mild weakness pt meets minimum non-severe malnutrition criteria. MD notified. Will monitor for further nutrition intervention needs this admit. Recommendations: 1) Advance to low fiber diet as medically indicated in view of recent GI surgery; encourage PO 2) Ensure Enlive TIDWM; pending MD verification in EMR 3) Bowel care per MD; colostomy volume needed in EMR 4) Weekly scaled weights Addendum: 08/02/21 at [address] Amended: Links added.
[2021-08-02 15:00] VITALS: BP 121/46
[2021-08-02] MEDS ORDERED: CADD PCA waste documentation MC PRN (15:25)
[2021-08-02 18:00] VITALS: BP 124/44
[2021-08-02] MEDS ORDERED: lactose-reduced food (Ensure Enlive) - 237ml bottle PO SCH (18:00)
--- NOTE | 2021-08-02 19:10 | NUR ---
Problems reprioritized. Patient report given, questions answered & plan of care reviewed with Gail BOOTH [].
[2021-08-02] MEDS: lactobacillus rhamnosus 10,000 MMU CELLS/CAPSULE PO SCH (21:38)
[2021-08-02] MEDS: diltiazem-NS 100mg/100ml 100 ML IV SCH (21:38)
[2021-08-02 22:00] VITALS: BP 123/58
[2021-08-02] MEDS ORDERED: acetaminophen 325mg tablet PO PRN (23:55)
[2021-08-03] VITALS (10 sets, daily range): BP systolic 81–114; BP diastolic 50–77
[2021-08-03] MEDS: piperacillin/tazo 3.375gm/50ml 50 ML IV SCH ×3 (00:28→16:56)
--- NOTE | 2021-08-03 01:17 | NUR ---
patient blood pressure low ,cardizem on hold per DR. Gentile
[2021-08-03] MEDS ORDERED: digoxin 250mcg/ml 2ml ampule IV ONE ×2 (03:35→12:50)
--- NOTE | 2021-08-03 03:37 | NUR ---
paged . DR bucio about PT HR in 140s orders given to give digoxin one time. still holding cardizem drip due to low BP
--- NOTE | 2021-08-03 06:40 | NUR ---
Patient in room PCU 3026. I have received report from Gail BOOTH and had the opportunity to ask questions and assume patient care.
[2021-08-03 07:07] LABS: MAGNESIUM 2.3 MG/DL (1.5-2.4)
[2021-08-03] MEDS: K and/or MAG REPLACEMENT MC SCH ×2 (08:00→20:00)
[2021-08-03] MEDS: albuterol 2.5 MG/3 ML nebule NEB SCH ×5 (08:10→23:00)
[2021-08-03] MEDS: furosemide 40mg/4ml inj IV SCH (08:10)
[2021-08-03] MEDS: enoxaparin 40mg/0.4ml syringe SQ SCH (08:10)
[2021-08-03] MEDS: pantoprazole IV 40 MG in dextrose 5%-water 100 ML IV SCH (08:13)
[2021-08-03] MEDS: aspirin 81mg, enteric-coated 1 TAB TABLET.DR PO SCH (08:15)
[2021-08-03] MEDS: lactobacillus rhamnosus 10,000 MMU CELLS/CAPSULE PO SCH ×2 (08:15→20:00)
[2021-08-03] MEDS ORDERED: amiodarone/D5 360MG/200ML BAG 200 ML IV SCH (09:20)
[2021-08-03] MEDS ORDERED: amiodarone 150mg/dext, iso-os 100 ML IV ONE (09:20)
[2021-08-03 09:33] LABS: BASOPHILS % (AUTO) 0.2 % (0-1); EOSINOPHILS % (AUTO) 0.1 % (0-6); HEMATOCRIT 37.5 % (42.0-52.0); HEMOGLOBIN 12.4 g/dl (14.0-17.9); LYMPHOCYTES # (AUTO) 0.7 X10'3 (1.1-4.8); LYMPHOCYTES % (AUTO) 5.5 % (21-51); MEAN CORPUSCULAR HEMOGLOBIN 26.5 PG (27.0-31.0); MEAN CORPUSCULAR HGB CONC 32.9 g/dL (33.0-36.5); MEAN CORPUSCULAR VOLUME 80.6 FL (78-98); MEAN PLATELET VOLUME 8.6 FL (7.4-10.4); MONOCYTES # (AUTO) 0.6 X10'3 (0-0.9); MONOCYTES % (AUTO) 4.5 % (2-12); NEUTROPHILS # (AUTO) 12.1 X10'3 (1.8-7.7); NEUTROPHILS % (AUTO) 89.7 % (42-75); PLATELET COUNT 268 X10'3 (140-440); RED BLOOD COUNT 4.66 X10'6 (4.70-6.10); RED CELL DISTRIBUTION WIDTH 25.7 % (11.5-14.5); WHITE BLOOD COUNT 13.5 X10'3 (4.5-11.0)
[2021-08-03 09:44] LABS: ALANINE AMINOTRANSFERASE 41 U/L (12-78); ALBUMIN 1.7 G/DL (3.4-5.0); ALBUMIN/GLOBULIN RATIO 0.4 (1.1-1.5); ALKALINE PHOSPHATASE 150 IU/L (46-116); ANION GAP 15 (8-16); BLOOD UREA NITROGEN 29 MG/DL (7-18); BUN/CREATININE RATIO 16.9 (5.4-32.0); CALCIUM 8.7 MG/DL (8.5-10.1); CHLORIDE 100 MMOL/L (99-107); CREATININE 1.72 MG/DL (0.60-1.10); GLUCOSE 109 MG/DL (70-104); SODIUM 140 MMOL/L (135-145); TOTAL CARBON DIOXIDE 24.7 MMOL/L (24-32); TOTAL PROTEIN 6.3 G/DL (6.4-8.2); eGFR 38 ML/MIN
[2021-08-03 09:48] LABS: ASPARTATE AMINO TRANSFERASE 56 U/L (10-37); BILIRUBIN,TOTAL 0.8 MG/DL (0.1-1.0); POTASSIUM 3.5 MMOL/L (3.5-5.1)
[2021-08-03 10:04] LABS: ANISOCYTOSIS 3+; GIANT PLATELET FEW; PLATELET ESTIMATE NORMAL
[2021-08-03 10:05] LABS: BURR CELLS 1+; ELLIPTOCYTES 1+; LARGE PLATELETS FEW; MICROCYTOSIS 1+; SCHISTOCYTES 1+
[2021-08-03 10:06] LABS: TEAR DROP CELLS FEW
--- NOTE | 2021-08-03 11:37 | NUR ---
DARRION drain to low intermitted suction d/t inability of bulb to depressed
[2021-08-03] MEDS: amiodarone/D5 360MG/200ML BAG 200 ML IV SCH ×2 (13:55→21:20)
--- NOTE | 2021-08-03 14:05 | NUR ---
Dr Dutton was paged : RE: Jay Villalba [phone] converted to NSR now on cardizem gtt 5mg and will continue until you say when
--- NOTE | 2021-08-03 14:32 | NUR ---
Paged Dr Dutton : RE: Jay Villalba [id number] converted to NSR 78 now on cardizem gtt 5mg do you want me to D/C the cardizem and hang the amiodarone at 33/hr please let me know. thanks Tonie
[2021-08-03] MEDS ORDERED: ondansetron 4mg rapidly disintigrating tab PO PRN (14:55)
[2021-08-03] MEDS: diltiazem-NS 100mg/100ml 100 ML IV SCH (16:50)
--- NOTE | 2021-08-03 18:52 | NUR ---
Problems reprioritized. Patient report given, questions answered & plan of care reviewed with Gail BOOTH[].
[2021-08-03] MEDS: apixaban 5mg tablet PO SCH (21:04)
[2021-08-04] MEDS: piperacillin/tazo 3.375gm/50ml 50 ML IV SCH ×3 (00:19→16:57)
[2021-08-04 02:00] VITALS: BP 109/47
[2021-08-04] MEDS: amiodarone/D5 360MG/200ML BAG 200 ML IV SCH ×3 (02:03→10:22)
[2021-08-04] MEDS: albuterol 2.5 MG/3 ML nebule NEB SCH ×7 (03:00→23:45)
[2021-08-04 06:20] LABS: BASOPHILS % (AUTO) 0.1 % (0-1); EOSINOPHILS % (AUTO) 0.2 % (0-6); HEMATOCRIT 34.5 % (42.0-52.0); HEMOGLOBIN 11.6 g/dl (14.0-17.9); LYMPHOCYTES # (AUTO) 0.7 X10'3 (1.1-4.8); LYMPHOCYTES % (AUTO) 5.9 % (21-51); MEAN CORPUSCULAR HEMOGLOBIN 26.6 PG (27.0-31.0); MEAN CORPUSCULAR HGB CONC 33.7 g/dL (33.0-36.5); MEAN CORPUSCULAR VOLUME 78.7 FL (78-98); MEAN PLATELET VOLUME 8.2 FL (7.4-10.4); MONOCYTES # (AUTO) 0.7 X10'3 (0-0.9); NEUTROPHILS # (AUTO) 10.2 X10'3 (1.8-7.7); NEUTROPHILS % (AUTO) 87.8 % (42-75); PLATELET COUNT 261 X10'3 (140-440); RED BLOOD COUNT 4.38 X10'6 (4.70-6.10); WHITE BLOOD COUNT 11.6 X10'3 (4.5-11.0)
--- NOTE | 2021-08-04 06:30 | NUR ---
Patient in room PCU 3026. I have received report from Gail BOOTH and had the opportunity to ask questions and assume patient care.
[2021-08-04 06:45] LABS: ALANINE AMINOTRANSFERASE 38 U/L (12-78); ALBUMIN 1.4 G/DL (3.4-5.0); ALBUMIN/GLOBULIN RATIO 0.3 (1.1-1.5); ALKALINE PHOSPHATASE 136 IU/L (46-116); ANION GAP 9 (8-16); ASPARTATE AMINO TRANSFERASE 52 U/L (10-37); BILIRUBIN,TOTAL 0.6 MG/DL (0.1-1.0); BLOOD UREA NITROGEN 28 MG/DL (7-18); BUN/CREATININE RATIO 18.4 (5.4-32.0); CALCIUM 8.7 MG/DL (8.5-10.1); CHLORIDE 103 MMOL/L (99-107); CREATININE 1.52 MG/DL (0.60-1.10); GLUCOSE 117 MG/DL (70-104); SODIUM 139 MMOL/L (135-145); TOTAL CARBON DIOXIDE 26.6 MMOL/L (24-32); TOTAL PROTEIN 5.6 G/DL (6.4-8.2); eGFR 44 ML/MIN
[2021-08-04 06:49] LABS: POTASSIUM 2.7 MMOL/L (3.5-5.1)
[2021-08-04 06:58] VITALS: BP 106/54
[2021-08-04] MEDS: lactobacillus rhamnosus 10,000 MMU CELLS/CAPSULE PO SCH ×2 (08:34→20:00)
[2021-08-04] MEDS: pantoprazole 40mg Tablet.DR PO SCH (08:34)
[2021-08-04] MEDS: aspirin 81mg, enteric-coated 1 TAB TABLET.DR PO SCH (08:34)
[2021-08-04] MEDS: apixaban 5mg tablet PO SCH ×2 (08:34→20:00)
[2021-08-04] MEDS: furosemide 40mg/4ml inj IV SCH (08:35)
[2021-08-04] MEDS: potassium Cl 20 mEq SR tablet PO PRN ×3 (08:40→22:48)
[2021-08-04] MEDS: K and/or MAG REPLACEMENT MC SCH ×3 (08:41→20:00)
[2021-08-04 10:46] VITALS: BP 93/47
[2021-08-04] MEDS ORDERED: digoxin 250mcg/ml 2ml ampule IV ONE ×2 (12:50→20:00)
[2021-08-04] MEDS: diltiazem 30mg tablet PO SCH ×2 (13:32→20:00)
[2021-08-04 15:00] VITALS: BP 97/60
[2021-08-04] MEDS ORDERED: magnesium 2GM in 50ml NS 50 ML IV PRN (15:00)
[2021-08-04] MEDS ORDERED: magnesium 4gm in 100ml NS 100 ML IV PRN (15:00)
--- NOTE | 2021-08-04 16:15 | NUR ---
Dr Amado was called re: new bulb to drainage not working, per Dr Avila reconnect to LIS and He will see patient in AM, orders carried out
[2021-08-04 18:00] VITALS: BP 92/49
--- NOTE | 2021-08-04 18:44 | NUR ---
Problems reprioritized. Patient report given, questions answered & plan of care reviewed with Gail BOOTH[].
[2021-08-04] MEDS ORDERED: potassium Cl 20 mEq SR tablet PO PRN (22:25)
[2021-08-04] MEDS ORDERED: potassium Cl 40MEQ/1/2NS 520ml 520 ML IV PRN (22:25)
[2021-08-04 22:30] VITALS: BP 108/53
[2021-08-04] MEDS ORDERED: diatr meglu/diatrizoate 30ml oral sol.-(3 dose) bottle PO ONE (22:35)
[2021-08-04] MEDS: diatr meglu/diatrizoate 30ml oral sol.-(3 dose) bottle PO SCH (22:49)
[2021-08-05] VITALS (17 sets, daily range): BP systolic 90–140; BP diastolic 41–66
[2021-08-05] MEDS: piperacillin/tazo 3.375gm/50ml 50 ML IV SCH ×3 (00:37→16:00)
[2021-08-05] MEDS: amiodarone/D5 360MG/200ML BAG 200 ML IV SCH ×3 (00:39→22:45)
[2021-08-05] MEDS: diltiazem 30mg tablet PO SCH ×4 (01:02→20:00)
[2021-08-05] MEDS: potassium Cl 20 mEq SR tablet PO PRN ×2 (02:54→08:25)
[2021-08-05] MEDS: albuterol 2.5 MG/3 ML nebule NEB SCH ×6 (03:28→22:59)
[2021-08-05] MEDS ORDERED: digoxin 250mcg/ml 2ml ampule IV ONE (06:00)
[2021-08-05 06:28] LABS: BASOPHILS % (AUTO) 0 % (0-1); EOSINOPHILS % (AUTO) 0.2 % (0-6); HEMATOCRIT 33.1 % (42.0-52.0); HEMOGLOBIN 11.3 g/dl (14.0-17.9); LYMPHOCYTES # (AUTO) 0.5 X10'3 (1.1-4.8); LYMPHOCYTES % (AUTO) 4.3 % (21-51); MEAN CORPUSCULAR HEMOGLOBIN 26.6 PG (27.0-31.0); MEAN CORPUSCULAR HGB CONC 34.1 g/dL (33.0-36.5); MEAN CORPUSCULAR VOLUME 78.2 FL (78-98); MEAN PLATELET VOLUME 8.1 FL (7.4-10.4); MONOCYTES # (AUTO) 0.8 X10'3 (0-0.9); MONOCYTES % (AUTO) 7.8 % (2-12); NEUTROPHILS # (AUTO) 9.4 X10'3 (1.8-7.7); NEUTROPHILS % (AUTO) 87.7 % (42-75); PLATELET COUNT 317 X10'3 (140-440); RED BLOOD COUNT 4.23 X10'6 (4.70-6.10); RED CELL DISTRIBUTION WIDTH 24.5 % (11.5-14.5); WHITE BLOOD COUNT 10.7 X10'3 (4.5-11.0)
--- NOTE | 2021-08-05 06:42 | NUR ---
Patient in room PCU 3026. I have received report from Gail BOOTH and had the opportunity to ask questions and assume patient care.
[2021-08-05 07:00] LABS: ALANINE AMINOTRANSFERASE 79 U/L (12-78); ALBUMIN 1.6 G/DL (3.4-5.0); ALBUMIN/GLOBULIN RATIO 0.4 (1.1-1.5); ALKALINE PHOSPHATASE 176 IU/L (46-116); ANION GAP 11 (8-16); ASPARTATE AMINO TRANSFERASE 98 U/L (10-37); BILIRUBIN,TOTAL 0.6 MG/DL (0.1-1.0); BLOOD UREA NITROGEN 27 MG/DL (7-18); BUN/CREATININE RATIO 17.2 (5.4-32.0); CALCIUM 8.6 MG/DL (8.5-10.1); CHLORIDE 105 MMOL/L (99-107); CREATININE 1.57 MG/DL (0.60-1.10); GLUCOSE 119 MG/DL (70-104); MAGNESIUM 2.2 MG/DL (1.5-2.4); POTASSIUM 3.1 MMOL/L (3.5-5.1); SODIUM 144 MMOL/L (135-145); TOTAL CARBON DIOXIDE 28.4 MMOL/L (24-32); TOTAL PROTEIN 5.8 G/DL (6.4-8.2); eGFR 43 ML/MIN
[2021-08-05 07:11] LABS: PLATELET ESTIMATE NORMAL
[2021-08-05 07:12] LABS: ANISOCYTOSIS 3+; MICROCYTOSIS 1+; POIKILOCYTOSIS FEW; POLYCHROMASIA FEW; TARGET CELLS FEW
[2021-08-05] MEDS: diatr meglu/diatrizoate 30ml oral sol.-(3 dose) bottle PO SCH ×2 (07:55→21:00)
[2021-08-05] MEDS: apixaban 5mg tablet PO SCH ×2 (08:00→20:00)
[2021-08-05] MEDS: aspirin 81mg, enteric-coated 1 TAB TABLET.DR PO SCH (08:00)
[2021-08-05] MEDS: K and/or MAG REPLACEMENT MC SCH ×3 (08:00→20:00)
[2021-08-05] MEDS: pantoprazole 40mg Tablet.DR PO SCH (08:25)
[2021-08-05] MEDS: lactobacillus rhamnosus 10,000 MMU CELLS/CAPSULE PO SCH ×2 (08:25→20:00)
[2021-08-05] MEDS: furosemide 40mg/4ml inj IV SCH (08:26)
[2021-08-05] MEDS ORDERED: potassium Cl 20 mEq/100mL bag IV SCH (09:40)
[2021-08-05] MEDS: potassium CL 10mEq/100ml bag 100 ML IV PRN (10:02)
[2021-08-05] MEDS ORDERED: human prothrombin complex-PCC 80 ML IV ONE (10:25)
[2021-08-05] MEDS: potassium Cl 10 mEq/100mL bag IV SCH ×4 (10:42→13:10)
--- NOTE | 2021-08-05 10:50 | NUR ---
Kcl IV x2 was infused. Repeat K+ prior to 2nd dose was 3.5. Dr Amado was made aware. Telephone consent received from Sarah (daughter) charge nurse Radha, Dr Amado, and myself were witnesses.
[2021-08-05] MEDS ORDERED: midazolam 1 mg/ML 2ml injection ONE ×2 (12:35→16:44)
[2021-08-05] MEDS ORDERED: hydrALAZINE 20mg/ml inj. IV PRN (13:05)
[2021-08-05] MEDS ORDERED: ondansetron/PF 4mg/2ml inj IV PRN ×2 (13:05→17:25)
[2021-08-05] MEDS ORDERED: morphine 4 MG/ML inj SYRINge IV PRN ×2 (13:05→17:25)
[2021-08-05] MEDS ORDERED: HYDROmorphone/PF 0.2 MG/ML SYRINGE IV PRN ×2 (13:05)
[2021-08-05] MEDS ORDERED: morphine 2 MG/ML inj. syringe IV PRN ×2 (13:05→17:25)
[2021-08-05] MEDS ORDERED: proCHLORperazine 10 MG/2 ml inj IV PRN ×2 (13:05→17:25)
[2021-08-05] MEDS ORDERED: meperidine/PF 25mg/ml syringe IV PRN ×4 (13:05→17:25)
[2021-08-05] MEDS ORDERED: acetaminophen 1,000mg/100ml IV 100 ML IV PRN (13:05)
[2021-08-05] MEDS ORDERED: labetalol 20mg/4ml (5mg/ml) syringe IV PRN (13:05)
[2021-08-05] MEDS ORDERED: ringers solution, lacted 1,000 ML IV SCH ×2 (13:05→17:25)
--- NOTE | 2021-08-05 13:30 | NUR ---
Pt left to OR, no distress noted DARRION gauze changed prior to leaving
[2021-08-05] MEDS ORDERED: fentaNYL /PF 50mcg/ml 5ml ampule ONE (13:47)
[2021-08-05] MEDS ORDERED: 0.9 % SODIUM CHLORIDE 10 ML VIAL ONE ×3 (14:43)
[2021-08-05] MEDS ORDERED: LIDOcaine 2% (20mg/ml) 5ml vial ONE (14:43)
[2021-08-05] MEDS ORDERED: propofol inj 20 ML IV ONE (14:43)
[2021-08-05] MEDS ORDERED: ceFOXitin 1000 MG inj ONE ×2 (14:43)
[2021-08-05] MEDS ORDERED: ondansetron/PF 4mg/2ml inj ONE (14:44)
[2021-08-05] MEDS ORDERED: dexamethasone sod phosphate 4mg/ml inj. ONE (14:44)
[2021-08-05] MEDS ORDERED: rocuronium 10mg/ml inj IV ONE ×3 (14:44→16:44)
[2021-08-05] MEDS ORDERED: phenylephrine 10mg/ml inj. ONE (14:44)
[2021-08-05] MEDS ORDERED: ePHEDrine 50MG/ML INJ. ONE (14:44)
[2021-08-05] MEDS ORDERED: metoprolol tartrate 1mg/ml inj IV ONE (14:44)
[2021-08-05] MEDS ORDERED: fentaNYL/PF 50MCG/1 ML 2ML syringe IV PRN (16:00)
[2021-08-05] MEDS ORDERED: midazolam 1 mg/ML 2ml injection IV ONE (16:00)
[2021-08-05] MEDS ORDERED: midazolam 100mg in NS 100ml 100 ML IV PRN (16:00)
[2021-08-05] MEDS ORDERED: morphine 4 MG/ML inj SYRINge ONE (16:25)
[2021-08-05] MEDS ORDERED: albumin (Human) 5% 250ml 250 ML IV ONE (16:35)
--- NOTE | 2021-08-05 16:35 | NUR ---
tele monitor returned to PCU by first assistant, pt belongings including his phone and portfolio management marketing was picked up same first assistant.,[employer] [facility]
[2021-08-05] MEDS ORDERED: NORepinephrine 1 mg/ml inj IV ONE (16:59)
[2021-08-05] MEDS: FENTANYL-0.9 % NACL/PF 100 ML IV PRN (17:26)
[2021-08-05 17:35] LABS: ABG BASE EXCESS 0.6 mmol/L (-2.0-2.0); ABG HCO3 26.9 mmol/L (22.0-26.0); ABG OXYGEN SATURATION 98.9 % (94-97); ABG PCO2 (T) 49.3 mmHg (35.0-48.0); ABG PO2 (T) 164.5 mmHg (75.0-100.0); FCOHb 0.3 % (0.0-3.9); FMetHb 0.4 % (0.0-1.5); FO2Hb 98.2 % (94-97); PATIENT TEMPERATURE 36.4; RESPIRATORY RATE 12 b/min; TIDAL VOLUME 450 mL; TOTAL HEMOGLOBIN 11.9 G/dl (14.0-18.0)
--- NOTE | 2021-08-05 17:35 | NUR ---
Pt to ICU via bed accompanied by anesthesia Dr. chau. pt sedated. RT paged to come to bedside for vent set up.
--- NOTE | 2021-08-05 17:45 | NUR ---
pt remains sedated , comfortable. vss. levophed gtt as ordered and BP stable w/ map above 65. ABD drsg CDI. DARRION drain w/ SS drainage noted. F/C to gravity to right of bed. Art line to right wrist patent. Triple lumen central line to right neck. RT in at bedside setting pt up on vent as ordered by .
[2021-08-05] MEDS ORDERED: NORepinephrine 8mg/ 250ml NS 250 ML IV PRN (18:25)
--- NOTE | 2021-08-05 18:35 | NUR ---
pt report given to prabhu singh who assumes pt care. Pt remains asleep, unarousable. levophed gtt still going per anesthesia orders. Dr. Holly was in to see pt and want CVP reading and 500ml of albumin given. pt abd remains soft w/ drsg CDI. All lines in tact. scant amount noted in quinn and 100 of ss drainged out of DARRION. 2 belonging bags to room 2011 w/ pt and Dr. Holly spoke with patinets daughter after surgery. No needs stated by receiving RN at this time.
[2021-08-05] MEDS ORDERED: albumin (Human) 5% 250ml 500 ML IV ONE (18:40)
[2021-08-05] MEDS: ringers solution, lacted 1,000 ML IV SCH (18:55)
[2021-08-05 19:53] LABS: ABG BASE EXCESS -1.3 mmol/L (-2.0-2.0); ABG OXYGEN SATURATION 95.1 % (94-97); ABG PCO2 (T) 56.2 mmHg (35.0-48.0); ABG PO2 (T) 91.8 mmHg (75.0-100.0); FCOHb 0.3 % (0.0-3.9); FMetHb 0.5 % (0.0-1.5); FO2Hb 94.3 % (94-97); PATIENT TEMPERATURE 37.3; PEEP 5 cm H2O; RESPIRATORY RATE 12 b/min; TIDAL VOLUME 450 mL; TOTAL HEMOGLOBIN 12.2 G/dl (14.0-18.0)
[2021-08-05 20:51] LABS: ALANINE AMINOTRANSFERASE 73 U/L (12-78); ALBUMIN 2.1 G/DL (3.4-5.0); ALBUMIN/GLOBULIN RATIO 0.6 (1.1-1.5); ALKALINE PHOSPHATASE 141 IU/L (46-116); ANION GAP 14 (8-16); ASPARTATE AMINO TRANSFERASE 72 U/L (10-37); BILIRUBIN,TOTAL 0.7 MG/DL (0.1-1.0); BLOOD UREA NITROGEN 31 MG/DL (7-18); BUN/CREATININE RATIO 17.1 (5.4-32.0); CHLORIDE 108 MMOL/L (99-107); CREATININE 1.81 MG/DL (0.60-1.10); GLUCOSE 163 MG/DL (70-104); POTASSIUM 4.6 MMOL/L (3.5-5.1); SODIUM 147 MMOL/L (135-145); TOTAL CARBON DIOXIDE 25.3 MMOL/L (24-32); TOTAL PROTEIN 5.8 G/DL (6.4-8.2); eGFR 36 ML/MIN
[2021-08-05 21:00] LABS: MAGNESIUM 2.1 MG/DL (1.5-2.4); PHOSPHORUS 5.4 MG/DL (2.3-4.5)
--- NOTE | 2021-08-05 21:30 | NUR ---
Dr called regardinng CVp 12, bp and heart rate of 160 afibb w/rvr, and digoxin levels. orders received for amio bolus and drip, 2 units of blood.
[2021-08-05] MEDS ORDERED: amiodarone 150mg/dext, iso-os 100 ML IV ONE ×2 (21:35→21:40)
[2021-08-05] MEDS ORDERED: amiodarone 50MG/ML inj IV ONE (21:40)
[2021-08-06] VITALS (29 sets, daily range): BP systolic 89–139; BP diastolic 35–47
[2021-08-06] MEDS: FENTANYL-0.9 % NACL/PF 100 ML IV PRN ×2 (01:13→23:04)
[2021-08-06] MEDS: diltiazem 30mg tablet PO SCH ×4 (02:00→20:52)
--- NOTE | 2021-08-06 02:00 | NUR ---
orders clarified regarding CVP range to call. pt CVP at 5 and medication that need to be given or held.
[2021-08-06] MEDS: piperacillin/tazo 3.375gm/50ml 50 ML IV SCH ×3 (02:06→15:31)
[2021-08-06] MEDS: amiodarone/D5 360MG/200ML BAG 200 ML IV SCH ×4 (02:07→20:53)
[2021-08-06] MEDS: albuterol 2.5 MG/3 ML nebule NEB SCH ×6 (02:46→23:18)
[2021-08-06 04:26] LABS: ABG HCO3 24.7 mmol/L (22.0-26.0); ABG OXYGEN SATURATION 94.5 % (94-97); ABG PCO2 (T) 35.7 mmHg (35.0-48.0); ABG PO2 (T) 70.5 mmHg (75.0-100.0); FCOHb 0.4 % (0.0-3.9); FMetHb 0.1 % (0.0-1.5); PATIENT TEMPERATURE 36.9; PEEP 5 cm H2O; RESPIRATORY RATE 16 b/min; TIDAL VOLUME 450 mL; TOTAL HEMOGLOBIN 12.2 G/dl (14.0-18.0)
[2021-08-06] MEDS: ringers solution, lacted 1,000 ML IV SCH ×2 (05:41→14:55)
--- NOTE | 2021-08-06 05:45 | NUR ---
called regarding low urine output and low systolic bp of 89.
[2021-08-06] MEDS ORDERED: ringers solution, lacted 1,000 ML IV SCH (06:00)
[2021-08-06 06:28] LABS: BASOPHILS # (AUTO) 0.1 X10'3 (0-0.2); BASOPHILS % (AUTO) 0.5 % (0-1); EOSINOPHILS % (AUTO) 0 % (0-6); HEMATOCRIT 35.1 % (42.0-52.0); HEMOGLOBIN 11.4 g/dl (14.0-17.9); LYMPHOCYTES # (AUTO) 0.3 X10'3 (1.1-4.8); LYMPHOCYTES % (AUTO) 2.1 % (21-51); MEAN CORPUSCULAR HEMOGLOBIN 26.5 PG (27.0-31.0); MEAN CORPUSCULAR HGB CONC 32.6 g/dL (33.0-36.5); MEAN CORPUSCULAR VOLUME 81.3 FL (78-98); MEAN PLATELET VOLUME 8.4 FL (7.4-10.4); MONOCYTES # (AUTO) 0.4 X10'3 (0-0.9); MONOCYTES % (AUTO) 3.4 % (2-12); NEUTROPHILS # (AUTO) 11.7 X10'3 (1.8-7.7); PLATELET COUNT 297 X10'3 (140-440); RED BLOOD COUNT 4.31 X10'6 (4.70-6.10); RED CELL DISTRIBUTION WIDTH 23.7 % (11.5-14.5); WHITE BLOOD COUNT 12.5 X10'3 (4.5-11.0)
[2021-08-06 06:50] LABS: ALANINE AMINOTRANSFERASE 57 U/L (12-78); ALBUMIN 1.8 G/DL (3.4-5.0); ALBUMIN/GLOBULIN RATIO 0.5 (1.1-1.5); ALKALINE PHOSPHATASE 116 IU/L (46-116); ANION GAP 12 (8-16); ASPARTATE AMINO TRANSFERASE 50 U/L (10-37); BILIRUBIN,TOTAL 0.8 MG/DL (0.1-1.0); BLOOD UREA NITROGEN 37 MG/DL (7-18); BUN/CREATININE RATIO 20.3 (5.4-32.0); CALCIUM 7.6 MG/DL (8.5-10.1); CHLORIDE 107 MMOL/L (99-107); CREATININE 1.82 MG/DL (0.60-1.10); GLUCOSE 210 MG/DL (70-104); POTASSIUM 4.1 MMOL/L (3.5-5.1); SODIUM 144 MMOL/L (135-145); TOTAL PROTEIN 5.2 G/DL (6.4-8.2); eGFR 36 ML/MIN
[2021-08-06] MEDS: pantoprazole 40mg Tablet.DR PO SCH (07:30)
[2021-08-06] MEDS: aspirin 81mg, enteric-coated 1 TAB TABLET.DR PO SCH (08:00)
[2021-08-06] MEDS: lactobacillus rhamnosus 10,000 MMU CELLS/CAPSULE PO SCH ×2 (08:00→20:52)
[2021-08-06] MEDS: K and/or MAG REPLACEMENT MC SCH ×2 (08:00→18:37)
[2021-08-06] MEDS: apixaban 5mg tablet PO SCH ×2 (08:00→20:53)
--- NOTE | 2021-08-06 08:29 | NUR ---
Reassessment: Pt underwent repeat laparotomy with takedown of colocolonic anastomosis, lysis of adhesions, transverse colostomy on 08/05 per EMR. Pt remains intubated and sedated s/p procedure. Pt previously on Full liquid diet w/ avg 25% intake of meals not meeting needs. If pt remains intubated, recommend initiation of nutrition support given current malnutrition status. Otherwise, advance diet as tolerated to low fiber diet s/p extubation and monitor need for ONS. Pt noted w/ 21ml colostomy output 08/04. Limited nutrition interventions at this time, will continue to monitor. Recommendations: 1) Upon extubation. Advance to low fiber diet as medically indicated in view of recent GI surgery; encourage PO 2) Upon extubation, Ensure Enlive TIDWM; pending MD verification in EMR 3) If to remain intubated, consider prompt nutrition support 4) Bowel care per MD; colostomy volume needed in EMR 5) Weekly scaled weights Addendum: 08/06/21 at [address] Amended: Links added.
[2021-08-06] MEDS: furosemide 40mg/4ml inj IV SCH (08:44)
[2021-08-06 09:30] LABS: PLATELET ESTIMATE NORMAL; POLYCHROMASIA FEW
[2021-08-06 09:31] LABS: ANISOCYTOSIS 3+; BURR CELLS FEW; ELLIPTOCYTES 1+; HYPOCHROMASIA 1+; TEAR DROP CELLS 1+
[2021-08-06 09:32] LABS: TARGET CELLS FEW
[2021-08-06 14:14] LABS: BASOPHILS % (AUTO) 0.3 % (0-1); EOSINOPHILS % (AUTO) 0 % (0-6); HEMATOCRIT 33.3 % (42.0-52.0); HEMOGLOBIN 10.9 g/dl (14.0-17.9); LYMPHOCYTES # (AUTO) 0.5 X10'3 (1.1-4.8); LYMPHOCYTES % (AUTO) 2.8 % (21-51); MEAN CORPUSCULAR HEMOGLOBIN 26.4 PG (27.0-31.0); MEAN CORPUSCULAR HGB CONC 32.8 g/dL (33.0-36.5); MEAN CORPUSCULAR VOLUME 80.3 FL (78-98); MEAN PLATELET VOLUME 8.5 FL (7.4-10.4); MONOCYTES # (AUTO) 0.5 X10'3 (0-0.9); MONOCYTES % (AUTO) 2.7 % (2-12); NEUTROPHILS # (AUTO) 15.6 X10'3 (1.8-7.7); NEUTROPHILS % (AUTO) 94.2 % (42-75); PLATELET COUNT 330 X10'3 (140-440); RED BLOOD COUNT 4.14 X10'6 (4.70-6.10); RED CELL DISTRIBUTION WIDTH 24.3 % (11.5-14.5); WHITE BLOOD COUNT 16.6 X10'3 (4.5-11.0)
[2021-08-06] MEDS: mineral oil/petrolatum ophthal oint EACHEYE SCH (18:45)
[2021-08-06] MEDS: dexmedetomidin/NS 400mcg/100ml 100 ML IV SCH (22:48)
[2021-08-07] VITALS (23 sets, daily range): BP systolic 85–124; BP diastolic 30–78
[2021-08-07] MEDS: piperacillin/tazo 3.375gm/50ml 50 ML IV SCH ×4 (00:04→23:53)
[2021-08-07] MEDS: ringers solution, lacted 1,000 ML IV SCH ×3 (00:55→20:55)
[2021-08-07] MEDS: amiodarone/D5 360MG/200ML BAG 200 ML IV SCH ×3 (01:38→15:42)
[2021-08-07] MEDS: dexmedetomidin/NS 400mcg/100ml 100 ML IV SCH ×3 (01:40→23:16)
[2021-08-07] MEDS: mineral oil/petrolatum ophthal oint EACHEYE SCH ×4 (01:40→19:17)
[2021-08-07] MEDS: diltiazem 30mg tablet PO SCH ×4 (01:40→19:17)
[2021-08-07 02:47] LABS: ALANINE AMINOTRANSFERASE 39 U/L (12-78); ALBUMIN 1.6 G/DL (3.4-5.0); ALBUMIN/GLOBULIN RATIO 0.5 (1.1-1.5); ALKALINE PHOSPHATASE 95 IU/L (46-116); ANION GAP 11 (8-16); ASPARTATE AMINO TRANSFERASE 30 U/L (10-37); BILIRUBIN,TOTAL 0.4 MG/DL (0.1-1.0); BLOOD UREA NITROGEN 44 MG/DL (7-18); BUN/CREATININE RATIO 20.9 (5.4-32.0); CALCIUM 7.6 MG/DL (8.5-10.1); CHLORIDE 108 MMOL/L (99-107); CREATININE 2.11 MG/DL (0.60-1.10); GLUCOSE 135 MG/DL (70-104); MAGNESIUM 2.1 MG/DL (1.5-2.4); POTASSIUM 3.3 MMOL/L (3.5-5.1); SODIUM 146 MMOL/L (135-145); TOTAL CARBON DIOXIDE 27.2 MMOL/L (24-32); TOTAL PROTEIN 5.1 G/DL (6.4-8.2); eGFR 30 ML/MIN
[2021-08-07] MEDS: albuterol 2.5 MG/3 ML nebule NEB SCH ×6 (02:57→22:51)
[2021-08-07 04:31] LABS: ABG BASE EXCESS 2.2 mmol/L (-2.0-2.0); ABG HCO3 24.9 mmol/L (22.0-26.0); ABG OXYGEN SATURATION 96.1 % (94-97); ABG PCO2 (T) 32.1 mmHg (35.0-48.0); ABG PO2 (T) 84.3 mmHg (75.0-100.0); FCOHb 0.3 % (0.0-3.9); FMetHb 0.3 % (0.0-1.5); FO2Hb 95.5 % (94-97); PATIENT TEMPERATURE 37.2; PEEP 5 cm H2O; TOTAL HEMOGLOBIN 10.7 G/dl (14.0-18.0)
[2021-08-07] MEDS: pantoprazole 40mg Tablet.DR PO SCH (07:30)
[2021-08-07] MEDS: furosemide 40mg/4ml inj IV SCH (08:45)
[2021-08-07] MEDS: aspirin 81mg, enteric-coated 1 TAB TABLET.DR PO SCH (08:46)
[2021-08-07] MEDS: apixaban 5mg tablet PO SCH ×2 (08:46→19:17)
[2021-08-07] MEDS: lactobacillus rhamnosus 10,000 MMU CELLS/CAPSULE PO SCH ×2 (08:46→19:17)
[2021-08-07] MEDS: K and/or MAG REPLACEMENT MC SCH ×2 (08:47→20:00)
[2021-08-07] MEDS: amiodarone 200mg tablet PO SCH ×2 (11:32→19:17)
[2021-08-07 11:41] LABS: BASOPHILS % (AUTO) 0.3 % (0-1); EOSINOPHILS % (AUTO) 0 % (0-6); HEMATOCRIT 29.6 % (42.0-52.0); HEMOGLOBIN 9.9 g/dl (14.0-17.9); LYMPHOCYTES # (AUTO) 0.6 X10'3 (1.1-4.8); LYMPHOCYTES % (AUTO) 4.5 % (21-51); MEAN CORPUSCULAR HEMOGLOBIN 26.7 PG (27.0-31.0); MEAN CORPUSCULAR HGB CONC 33.3 g/dL (33.0-36.5); MEAN CORPUSCULAR VOLUME 80.1 FL (78-98); MEAN PLATELET VOLUME 8.2 FL (7.4-10.4); MONOCYTES # (AUTO) 0.6 X10'3 (0-0.9); MONOCYTES % (AUTO) 4.5 % (2-12); NEUTROPHILS # (AUTO) 11.8 X10'3 (1.8-7.7); NEUTROPHILS % (AUTO) 90.7 % (42-75); PLATELET COUNT 322 X10'3 (140-440); RED BLOOD COUNT 3.69 X10'6 (4.70-6.10); RED CELL DISTRIBUTION WIDTH 24.3 % (11.5-14.5)
[2021-08-07 11:57] LABS: ALBUMIN 1.5 G/DL (3.4-5.0); ANION GAP 13 (8-16); BLOOD UREA NITROGEN 43 MG/DL (7-18); BUN/CREATININE RATIO 21.6 (5.4-32.0); CALCIUM 7.8 MG/DL (8.5-10.1); CHLORIDE 107 MMOL/L (99-107); CREATININE 1.99 MG/DL (0.60-1.10); GLUCOSE 116 MG/DL (70-104); POTASSIUM 3.1 MMOL/L (3.5-5.1); SODIUM 147 MMOL/L (135-145); TOTAL CARBON DIOXIDE 27.5 MMOL/L (24-32); eGFR 32 ML/MIN
[2021-08-07 14:09] LABS: ANISOCYTOSIS 3+; PLATELET ESTIMATE NORMAL
[2021-08-07 14:10] LABS: ELLIPTOCYTES FEW; SCHISTOCYTES FEW
[2021-08-07 14:11] LABS: MICROCYTOSIS 1+; ROULEAUX 1+
[2021-08-07 14:12] LABS: TEAR DROP CELLS FEW
[2021-08-07] MEDS ORDERED: HYDROmorphone inj. 0.5 MG/0.5 ML DISP.SYRIN IV PRN (14:15)
[2021-08-07] MEDS ORDERED: acetaminophen 325mg tablet PO PRN (14:15)
--- NOTE | 2021-08-07 15:05 | NUR ---
Patient extubated by RT, placed on HFNC at 10L sating 92%
[2021-08-08] VITALS (24 sets, daily range): BP systolic 96–134; BP diastolic 15–52
[2021-08-08] MEDS: mineral oil/petrolatum ophthal oint EACHEYE SCH ×4 (01:38→19:45)
[2021-08-08] MEDS: diltiazem 30mg tablet PO SCH ×4 (01:38→20:13)
[2021-08-08 02:15] LABS: ALANINE AMINOTRANSFERASE 36 U/L (12-78); ALBUMIN 1.5 G/DL (3.4-5.0); ALBUMIN/GLOBULIN RATIO 0.4 (1.1-1.5); ALKALINE PHOSPHATASE 103 IU/L (46-116); ANION GAP 11 (8-16); ASPARTATE AMINO TRANSFERASE 31 U/L (10-37); BILIRUBIN,TOTAL 0.4 MG/DL (0.1-1.0); BLOOD UREA NITROGEN 40 MG/DL (7-18); CHLORIDE 109 MMOL/L (99-107); CREATININE 1.82 MG/DL (0.60-1.10); GLUCOSE 97 MG/DL (70-104); MAGNESIUM 2.2 MG/DL (1.5-2.4); SODIUM 149 MMOL/L (135-145); TOTAL PROTEIN 5.4 G/DL (6.4-8.2); eGFR 36 ML/MIN
[2021-08-08 02:19] LABS: POTASSIUM 2.8 MMOL/L (3.5-5.1)
[2021-08-08] MEDS: potassium CL 10mEq/100ml bag 100 ML IV PRN ×5 (02:35→20:13)
[2021-08-08] MEDS: albuterol 2.5 MG/3 ML nebule NEB SCH ×6 (02:49→23:19)
[2021-08-08 03:25] LABS: BASOPHILS % (AUTO) 0.1 % (0-1); EOSINOPHILS % (AUTO) 0 % (0-6); HEMATOCRIT 29.2 % (42.0-52.0); HEMOGLOBIN 9.8 g/dl (14.0-17.9); LYMPHOCYTES # (AUTO) 0.5 X10'3 (1.1-4.8); LYMPHOCYTES % (AUTO) 4.8 % (21-51); MEAN CORPUSCULAR HGB CONC 33.5 g/dL (33.0-36.5); MEAN CORPUSCULAR VOLUME 80.6 FL (78-98); MEAN PLATELET VOLUME 8.5 FL (7.4-10.4); MONOCYTES # (AUTO) 0.4 X10'3 (0-0.9); NEUTROPHILS # (AUTO) 9.3 X10'3 (1.8-7.7); NEUTROPHILS % (AUTO) 91.1 % (42-75); PLATELET COUNT 347 X10'3 (140-440); RED BLOOD COUNT 3.63 X10'6 (4.70-6.10); RED CELL DISTRIBUTION WIDTH 24.2 % (11.5-14.5); WHITE BLOOD COUNT 10.2 X10'3 (4.5-11.0)
[2021-08-08 04:13] LABS: ANISOCYTOSIS 3+; PLATELET ESTIMATE NORMAL
[2021-08-08 04:14] LABS: ELLIPTOCYTES FEW; LARGE PLATELETS FEW; MICROCYTOSIS FEW; SCHISTOCYTES FEW; TARGET CELLS FEW
[2021-08-08] MEDS: K and/or MAG REPLACEMENT MC SCH ×2 (08:00→19:45)
[2021-08-08] MEDS: ringers solution, lacted 1,000 ML IV SCH ×2 (09:05→16:59)
[2021-08-08] MEDS: furosemide 40mg/4ml inj IV SCH (09:05)
[2021-08-08] MEDS: piperacillin/tazo 3.375gm/50ml 50 ML IV SCH ×2 (09:05→16:58)
[2021-08-08] MEDS: lactobacillus rhamnosus 10,000 MMU CELLS/CAPSULE PO SCH ×2 (09:06→20:13)
[2021-08-08] MEDS: aspirin 81mg, enteric-coated 1 TAB TABLET.DR PO SCH (09:06)
[2021-08-08] MEDS: apixaban 5mg tablet PO SCH ×2 (09:06→20:13)
[2021-08-08] MEDS: lansoprazole 15mg solutab NG SCH (09:06)
[2021-08-08] MEDS: amiodarone 200mg tablet PO SCH ×2 (09:07→20:14)
[2021-08-08] MEDS: HYDROmorphone inj. 0.5 MG/0.5 ML DISP.SYRIN IV PRN ×3 (11:57→18:27)
--- NOTE | 2021-08-08 12:12 | NUR ---
Reassessment: Pt extubated 08/07 per EMR, with an NGT in place. Noted pt continues with an active PO diet though has been documented to be NPO since 08/04 per EMR. Verbal confirmation from RN that pt NPO at this time, recommend changing diet order to NPO in EMR for accuracy. Per I&O pt with 150 mL stool output 08/07. Will continue to follow closely and make recommendations as appropriate. Recommendations: 1) Advance to low fiber diet as medically indicated in view of recent GI surgery 2) Consider Ensure Enlive TIDWM with diet advancement 3) Consider nutrition support if unable to advance PO diet in view of prolonged insufficient nutrition intake 4) Bowel care per MD 5) Weekly scaled weights Addendum: 08/08/21 at [address] Amended: Links added.
[2021-08-08] MEDS: HYDROcodone/acetaminophen 5mg/325mg tablet PO PRN (19:23)
[2021-08-08] MEDS: potassium Cl 20mEq/100mL bag 100 ML IV PRN (21:24)
[2021-08-09] VITALS (15 sets, daily range): BP systolic 106–131; BP diastolic 29–62
[2021-08-09 00:08] LABS: HEMOGLOBIN 10.4 g/dl (14.0-17.9)
[2021-08-09 00:09] LABS: BASOPHILS % (AUTO) 0.1 % (0-1); EOSINOPHILS % (AUTO) 0.2 % (0-6); HEMATOCRIT 31.3 % (42.0-52.0); LYMPHOCYTES # (AUTO) 0.7 X10'3 (1.1-4.8); LYMPHOCYTES % (AUTO) 7.1 % (21-51); MEAN CORPUSCULAR HGB CONC 33.4 g/dL (33.0-36.5); MEAN CORPUSCULAR VOLUME 80.9 FL (78-98); MEAN PLATELET VOLUME 8.4 FL (7.4-10.4); MONOCYTES # (AUTO) 0.4 X10'3 (0-0.9); MONOCYTES % (AUTO) 3.8 % (2-12); NEUTROPHILS # (AUTO) 8.7 X10'3 (1.8-7.7); NEUTROPHILS % (AUTO) 88.8 % (42-75); PLATELET COUNT 432 X10'3 (140-440); RED BLOOD COUNT 3.87 X10'6 (4.70-6.10); RED CELL DISTRIBUTION WIDTH 24.1 % (11.5-14.5); WHITE BLOOD COUNT 9.8 X10'3 (4.5-11.0)
[2021-08-09 00:15] LABS: ALBUMIN 1.5 G/DL (3.4-5.0); ANION GAP 10 (8-16); BLOOD UREA NITROGEN 31 MG/DL (7-18); BUN/CREATININE RATIO 20.4 (5.4-32.0); CALCIUM 8.6 MG/DL (8.5-10.1); CHLORIDE 111 MMOL/L (99-107); CREATININE 1.52 MG/DL (0.60-1.10); GLUCOSE 91 MG/DL (70-104); MAGNESIUM 2.2 MG/DL (1.5-2.4); POTASSIUM 3.5 MMOL/L (3.5-5.1); SODIUM 148 MMOL/L (135-145); TOTAL CARBON DIOXIDE 27.4 MMOL/L (24-32); eGFR 44 ML/MIN
[2021-08-09 00:28] LABS: ANISOCYTOSIS 3+; PLATELET ESTIMATE NORMAL
[2021-08-09 00:33] LABS: ELLIPTOCYTES FEW; LARGE PLATELETS FEW; TARGET CELLS 1+
[2021-08-09 00:34] LABS: MICROCYTOSIS FEW
[2021-08-09 00:35] LABS: SCHISTOCYTES FEW
[2021-08-09] MEDS: piperacillin/tazo 3.375gm/50ml 50 ML IV SCH ×3 (00:45→16:00)
[2021-08-09] MEDS: HYDROmorphone inj. 0.5 MG/0.5 ML DISP.SYRIN IV PRN ×3 (01:35→12:40)
[2021-08-09] MEDS: mineral oil/petrolatum ophthal oint EACHEYE SCH ×4 (02:00→20:00)
[2021-08-09] MEDS: diltiazem 30mg tablet PO SCH ×4 (02:41→20:00)
[2021-08-09] MEDS: ringers solution, lacted 1,000 ML IV SCH ×2 (02:41→12:41)
[2021-08-09] MEDS: albuterol 2.5 MG/3 ML nebule NEB SCH ×5 (02:59→20:11)
[2021-08-09 03:50] LABS: MAGNESIUM 2.2 MG/DL (1.5-2.4)
[2021-08-09 04:55] LABS: BASOPHILS % (AUTO) 0.2 % (0-1); EOSINOPHILS % (AUTO) 0.4 % (0-6); HEMATOCRIT 30.5 % (42.0-52.0); HEMOGLOBIN 10.2 g/dl (14.0-17.9); LYMPHOCYTES # (AUTO) 0.5 X10'3 (1.1-4.8); LYMPHOCYTES % (AUTO) 5.7 % (21-51); MEAN CORPUSCULAR HEMOGLOBIN 27.2 PG (27.0-31.0); MEAN CORPUSCULAR HGB CONC 33.4 g/dL (33.0-36.5); MEAN CORPUSCULAR VOLUME 81.3 FL (78-98); MEAN PLATELET VOLUME 8.5 FL (7.4-10.4); MONOCYTES # (AUTO) 0.5 X10'3 (0-0.9); MONOCYTES % (AUTO) 4.8 % (2-12); NEUTROPHILS # (AUTO) 8.5 X10'3 (1.8-7.7); NEUTROPHILS % (AUTO) 88.9 % (42-75); PLATELET COUNT 403 X10'3 (140-440); RED BLOOD COUNT 3.76 X10'6 (4.70-6.10); RED CELL DISTRIBUTION WIDTH 23.8 % (11.5-14.5); WHITE BLOOD COUNT 9.5 X10'3 (4.5-11.0)
[2021-08-09 04:58] LABS: ALBUMIN 1.5 G/DL (3.4-5.0); ANION GAP 11 (8-16); BLOOD UREA NITROGEN 31 MG/DL (7-18); BUN/CREATININE RATIO 20.8 (5.4-32.0); CALCIUM 8.3 MG/DL (8.5-10.1); CHLORIDE 111 MMOL/L (99-107); CREATININE 1.49 MG/DL (0.60-1.10); GLUCOSE 86 MG/DL (70-104); POTASSIUM 3.1 MMOL/L (3.5-5.1); SODIUM 148 MMOL/L (135-145); TOTAL CARBON DIOXIDE 26.3 MMOL/L (24-32); eGFR 45 ML/MIN
[2021-08-09 05:06] LABS: PLATELET ESTIMATE NORMAL
[2021-08-09 05:11] LABS: ANISOCYTOSIS 3+
[2021-08-09 05:16] LABS: BURR CELLS FEW; TARGET CELLS FEW
[2021-08-09 05:17] LABS: LARGE PLATELETS FEW; SCHISTOCYTES FEW
[2021-08-09] MEDS: potassium Cl 20mEq/100mL bag 100 ML IV PRN ×2 (05:33→06:58)
[2021-08-09] MEDS: K and/or MAG REPLACEMENT MC SCH ×2 (08:00→20:00)
[2021-08-09] MEDS: aspirin 81mg, enteric-coated 1 TAB TABLET.DR PO SCH (08:09)
[2021-08-09] MEDS: apixaban 5mg tablet PO SCH ×2 (08:09→20:00)
[2021-08-09] MEDS: lactobacillus rhamnosus 10,000 MMU CELLS/CAPSULE PO SCH ×2 (08:09→20:00)
[2021-08-09] MEDS: amiodarone 200mg tablet PO SCH ×2 (08:09→20:00)
[2021-08-09] MEDS: lansoprazole 15mg solutab NG SCH (08:09)
[2021-08-09] MEDS: furosemide 40mg/4ml inj IV SCH (08:10)
--- NOTE | 2021-08-09 13:48 | NUR ---
WOUND INFECTION EDUCATION PROVIDED BY WOUND CARE 1. Patient instructed to call their primary doctor, or go the ED immediately if any of the following symptoms occur: * Increased pain in wound * Increase in drainage from the wound * Redness in the skin surrounding the wound * Warmth in the skin surrounding the wound * Bleeding from the wound * Temperature of 101 or greater 2. If any of these occur while in the hospital tell a nurse immediately. PRESSURE ULCER EDUCATION: DEFINITION: A pressure ulcer is an area of skin that breaks down when you stay in one position too long. The constant pressure against the skin reduces the blood flow to that area and the affected tissue dies. CAUSES: "Being bedridden or in a wheelchair "Fragile skin "Having a chronic condition, such as diabetes or vascular disease "Inability to move certain parts of your body without assistance "Older age "Incontinence of urine or stool SYMPTOMS: "A reddened area that DOES NOT turn white when pressed on - this can be the beginning of a pressure ulcer "A blister, deep sore or a crater - these can be advanced pressure ulcers FIRST AID: "Relieve the pressure on this area "Keep the area clean and dry "Call your primary doctor if you see any of the above symptoms "DO NOT massage the area "DO NOT use a donut shaped or ring shaped pillow- these actually interfere with the blood flow and cause complications PREVENTION: "Check for pressure ulcers everyday "Change position at least every two hours to relieve pressure "Use items that help relieve pressure- pillows, sheepskin, foam padding, and powders. "Keep skin clean and dry "Eat healthy well balanced meals "Exercise daily IF YOU SEE ANY OF THESE SYMPTOMS WHILE IN THE HOSPITAL - TELL YOUR NURSE IMMEDIATELY. IF YOU SEE ANY OF THESE SYMPTOMS WHILE AT HOME OR HAVE ANY QUESTIONS OR CONCERNS ABOUT PRESSURE ULCERS - CALL YOUR PRIMARY DOCTOR IMMEDIATELY. Addendum: 08/09/21 at 1349 by Sarahi Murphy RN Amended: Links added.
--- NOTE | 2021-08-09 14:45 | NUR ---
Patient in room CICU 2011. I have received report from Racheal SHOWER ENCLOSURE INSTALLER and had the opportunity to ask questions and assume patient care.
[2021-08-09] MEDS ORDERED: furosemide 40mg/4ml inj IV ONE (15:05)
[2021-08-09] MEDS: furosemide 10 MG/1 ML 10ml inj IV SCH (15:05)
--- NOTE | 2021-08-09 15:33 | NUR ---
Pt received from ICU12A, [id number], no distress noted midline abd dsg intact with DARRION to left side abd. colostomy draining dark brown stool. daughter at side, call light in reach. assessment unchanged, will continue to monitor
--- NOTE | 2021-08-09 18:27 | NUR ---
Problems reprioritized. Patient report given, questions answered & plan of care reviewed with Alfreda BOOTH[].
--- NOTE | 2021-08-09 23:20 | NUR ---
Patient BP was 69/40 (50), called he doctor and he told me to hold his Cardizem and amiodarone tablet and continue to monitor patient. After 30 minutes, patient BP is now 75/50. This nurse called Dr. Whitfield again and he stated to continue to monitor patient. Patient BP is currently 109/41. This nurse will continue to monitor patient.
[2021-08-10] MEDS: albuterol 2.5 MG/3 ML nebule NEB SCH ×7 (00:12→23:20)
[2021-08-10] MEDS: diltiazem 30mg tablet PO SCH ×4 (02:00→20:00)
[2021-08-10] MEDS: mineral oil/petrolatum ophthal oint EACHEYE SCH ×4 (02:00→20:00)
[2021-08-10] MEDS: ringers solution, lacted 1,000 ML IV SCH ×2 (02:16→08:18)
[2021-08-10 06:00] VITALS: BP 126/50
[2021-08-10 07:00] LABS: BASOPHILS % (AUTO) 0.2 % (0-1); EOSINOPHILS % (AUTO) 0.5 % (0-6); HEMATOCRIT 33.9 % (42.0-52.0); HEMOGLOBIN 11.4 g/dl (14.0-17.9); LYMPHOCYTES # (AUTO) 0.7 X10'3 (1.1-4.8); LYMPHOCYTES % (AUTO) 7.1 % (21-51); MEAN CORPUSCULAR HEMOGLOBIN 27.2 PG (27.0-31.0); MEAN CORPUSCULAR HGB CONC 33.6 g/dL (33.0-36.5); MEAN CORPUSCULAR VOLUME 80.9 FL (78-98); MEAN PLATELET VOLUME 8.5 FL (7.4-10.4); MONOCYTES # (AUTO) 0.4 X10'3 (0-0.9); MONOCYTES % (AUTO) 4.5 % (2-12); NEUTROPHILS % (AUTO) 87.7 % (42-75); PLATELET COUNT 469 X10'3 (140-440); RED BLOOD COUNT 4.19 X10'6 (4.70-6.10); RED CELL DISTRIBUTION WIDTH 23.8 % (11.5-14.5); WHITE BLOOD COUNT 9.1 X10'3 (4.5-11.0)
[2021-08-10 07:26] LABS: ALBUMIN 1.7 G/DL (3.4-5.0); ANION GAP 11 (8-16); BLOOD UREA NITROGEN 26 MG/DL (7-18); BUN/CREATININE RATIO 16.3 (5.4-32.0); CALCIUM 8.8 MG/DL (8.5-10.1); CHLORIDE 106 MMOL/L (99-107); GLUCOSE 104 MG/DL (70-104); SODIUM 147 MMOL/L (135-145); TOTAL CARBON DIOXIDE 29.6 MMOL/L (24-32); eGFR 42 ML/MIN
[2021-08-10 07:30] LABS: POTASSIUM 2.7 MMOL/L (3.5-5.1)
--- NOTE | 2021-08-10 07:36 | NUR ---
PAGER ID: [phone] MESSAGE: [id number] Brenna Villalba+ 2.7. HR 50s. Okay to give Amio PO? Hold Cardizem? Call Joslyn [phone]
--- NOTE | 2021-08-10 07:38 | NUR ---
Dr. Higgins called back and states to give Cardizem and hold Amiodarone due to heart rate trending in 50s
[2021-08-10] MEDS ORDERED: potassium CL 10mEq/100ml bag 100 ML IV PRN (07:45)
[2021-08-10] MEDS ORDERED: potassium Cl 20 mEq SR tablet PO PRN (07:50)
[2021-08-10] MEDS: amiodarone 200mg tablet PO SCH (08:00)
[2021-08-10] MEDS: K and/or MAG REPLACEMENT MC SCH ×2 (08:00→20:00)
[2021-08-10] MEDS: lactobacillus rhamnosus 10,000 MMU CELLS/CAPSULE PO SCH ×2 (08:07→20:00)
[2021-08-10] MEDS: apixaban 5mg tablet PO SCH ×2 (08:07→22:08)
[2021-08-10] MEDS: aspirin 81mg, enteric-coated 1 TAB TABLET.DR PO SCH (08:07)
[2021-08-10] MEDS: pantoprazole 40mg Tablet.DR PO SCH (08:12)
[2021-08-10] MEDS: potassium Cl 20 mEq SR tablet PO PRN ×2 (08:13→12:40)
[2021-08-10] MEDS: piperacillin/tazo 3.375gm/50ml 50 ML IV SCH ×3 (08:13→15:36)
[2021-08-10] MEDS: furosemide 10 MG/1 ML 10ml inj IV SCH (08:14)
--- NOTE | 2021-08-10 09:00 | NUR ---
Colostomy bag changed and abdominal dressing changed as per order.
[2021-08-10] MEDS: HYDROcodone/acetaminophen 5mg/325mg tablet PO PRN (10:37)
[2021-08-10 11:00] VITALS: BP 115/51
--- NOTE | 2021-08-10 14:16 | NUR ---
Stoma with area of dark red, and looking pale in placed. Measured at 35mm size. Brown liquid output. Device is sealed CDI, was not changed. Addendum: 08/10/21 at 1417 by Thelma Patton RN Amended: Links added.
[2021-08-10 15:00] VITALS: BP 107/45
[2021-08-10 18:00] VITALS: BP 115/46
[2021-08-10] MEDS: potassium Cl 20 mEq SR tablet PO SCH (18:25)
--- NOTE | 2021-08-10 18:37 | NUR ---
Problems reprioritized. Patient report given, questions answered & plan of care reviewed with Alfreda BOOTH.
[2021-08-10 22:00] VITALS: BP 101/57
[2021-08-10] MEDS: Potassium Cl inj 20 MEQ in normal saline 1000ml 990 ML IV SCH (22:08)
[2021-08-11] MEDS: piperacillin/tazo 3.375gm/50ml 50 ML IV SCH ×4 (00:32→23:37)
[2021-08-11 02:00] VITALS: BP 115/46
[2021-08-11] MEDS: mineral oil/petrolatum ophthal oint EACHEYE SCH ×4 (02:00→20:00)
[2021-08-11] MEDS: diltiazem 30mg tablet PO SCH ×4 (02:00→20:00)
[2021-08-11] MEDS: albuterol 2.5 MG/3 ML nebule NEB SCH ×6 (03:41→20:09)
--- NOTE | 2021-08-11 04:45 | NUR ---
PATIENT'S CARDIZEM TABLET WAS HELD BECAUSE HE IS BRADYCARDIC.
[2021-08-11 06:00] VITALS: BP 106/46
[2021-08-11 06:22] LABS: BASOPHILS % (AUTO) 0.2 % (0-1); EOSINOPHILS # (AUTO) 0.1 X10'3 (0-0.9); EOSINOPHILS % (AUTO) 0.8 % (0-6); HEMATOCRIT 32.9 % (42.0-52.0); HEMOGLOBIN 10.9 g/dl (14.0-17.9); LYMPHOCYTES # (AUTO) 0.6 X10'3 (1.1-4.8); LYMPHOCYTES % (AUTO) 7.1 % (21-51); MEAN CORPUSCULAR HEMOGLOBIN 26.9 PG (27.0-31.0); MEAN CORPUSCULAR HGB CONC 33.3 g/dL (33.0-36.5); MEAN CORPUSCULAR VOLUME 80.8 FL (78-98); MEAN PLATELET VOLUME 8.5 FL (7.4-10.4); MONOCYTES # (AUTO) 0.4 X10'3 (0-0.9); MONOCYTES % (AUTO) 5.1 % (2-12); NEUTROPHILS # (AUTO) 7.2 X10'3 (1.8-7.7); NEUTROPHILS % (AUTO) 86.8 % (42-75); PLATELET COUNT 413 X10'3 (140-440); RED BLOOD COUNT 4.07 X10'6 (4.70-6.10); RED CELL DISTRIBUTION WIDTH 23.1 % (11.5-14.5); WHITE BLOOD COUNT 8.3 X10'3 (4.5-11.0)
[2021-08-11 06:23] LABS: ALBUMIN 1.6 G/DL (3.4-5.0); ANION GAP 9 (8-16); BLOOD UREA NITROGEN 25 MG/DL (7-18); BUN/CREATININE RATIO 16.1 (5.4-32.0); CALCIUM 8.2 MG/DL (8.5-10.1); CHLORIDE 106 MMOL/L (99-107); CREATININE 1.55 MG/DL (0.60-1.10); GLUCOSE 120 MG/DL (70-104); SODIUM 144 MMOL/L (135-145); TOTAL CARBON DIOXIDE 29.3 MMOL/L (24-32); eGFR 43 ML/MIN
[2021-08-11 06:31] LABS: POTASSIUM 2.8 MMOL/L (3.5-5.1)
--- NOTE | 2021-08-11 07:17 | NUR ---
PAGER ID: [phone] MESSAGE: [id number] Brenna Villalba+2.8. Replace with scheduled dose? HR 50s- Cardizem has been held per parameters. Joslyn [phone]
[2021-08-11] MEDS: K and/or MAG REPLACEMENT MC SCH ×2 (08:00→20:30)
[2021-08-11] MEDS: apixaban 5mg tablet PO SCH ×2 (08:06→20:45)
[2021-08-11] MEDS: potassium Cl 20 mEq SR tablet PO SCH (08:06)
[2021-08-11] MEDS: pantoprazole 40mg Tablet.DR PO SCH (08:06)
[2021-08-11] MEDS: aspirin 81mg, enteric-coated 1 TAB TABLET.DR PO SCH (08:06)
[2021-08-11] MEDS: lactobacillus rhamnosus 10,000 MMU CELLS/CAPSULE PO SCH ×2 (08:06→20:45)
[2021-08-11] MEDS: furosemide 10 MG/1 ML 10ml inj IV SCH (08:14)
[2021-08-11 08:16] LABS: ANISOCYTOSIS 3+; HYPOCHROMASIA 1+; PLATELET ESTIMATE NORMAL
[2021-08-11 08:17] LABS: SCHISTOCYTES FEW
[2021-08-11 08:18] LABS: GIANT PLATELET FEW; LARGE PLATELETS FEW; POLYCHROMASIA FEW; TARGET CELLS FEW
[2021-08-11] MEDS: Potassium Cl inj 20 MEQ in normal saline 1000ml 990 ML IV SCH ×2 (08:43→11:35)
[2021-08-11 11:00] VITALS: BP 101/42
[2021-08-11] MEDS: potassium Cl 20 mEq SR tablet PO PRN ×2 (12:09→16:53)
--- NOTE | 2021-08-11 13:36 | NUR ---
Reassessment: Per MD note NGT has been removed. PO diet has been advanced to clear liquids and pt documented with ~50% PO intake at breakfast his morning which is the only documented meal since diet has been advanced from NPO. Limited nutrition interventions at this time in view of current diet order. LBM 08/10 documented with 450 mL stool output per I&O. Will continue to follow closely and make recommendations as appropriate. Recommendations: 1) Advance to low fiber diet as medically indicated in view of recent GI surgery 2) Consider Ensure Enlive TIDWM with diet advancement if pt with insufficient PO intake of meals 3) Consider nutrition support if unable to advance PO diet in view of prolonged insufficient nutrient intake 4) Bowel care per MD 5) Weekly scaled weights Addendum: 08/11/21 at [address] Amended: Links added.
[2021-08-11] MEDS: HYDROcodone/acetaminophen 5mg/325mg tablet PO PRN ×2 (14:43→23:44)
[2021-08-11 15:00] VITALS: BP 92/40
--- NOTE | 2021-08-11 15:14 | NUR ---
PAGER ID: [phone] MESSAGE: [phone] Jay Villalba- (MAP 51). HR 53. Joslyn [phone]
[2021-08-11 18:00] VITALS: BP 106/44
--- NOTE | 2021-08-11 18:16 | NUR ---
Problems reprioritized. Patient report given, questions answered & plan of care reviewed with Doris BOOTH.
--- NOTE | 2021-08-11 18:34 | NUR ---
Patient in room PCU 3026. I have received report from samantha Jorgensen and had the opportunity to ask questions and assume patient care.
--- NOTE | 2021-08-11 23:33 | NUR ---
pt refused 2200 vital.
[2021-08-12] MEDS: albuterol 2.5 MG/3 ML nebule NEB SCH ×6 (00:05→23:00)
[2021-08-12] MEDS: Potassium Cl inj 20 MEQ in normal saline 1000ml 990 ML IV SCH ×2 (00:58→21:41)
[2021-08-12 02:00] VITALS: BP 96/34
[2021-08-12] MEDS: mineral oil/petrolatum ophthal oint EACHEYE SCH ×4 (02:00→20:00)
--- NOTE | 2021-08-12 06:20 | NUR ---
Problems reprioritized. Patient report given, questions answered & plan of care reviewed with samantha Holguin.
--- NOTE | 2021-08-12 06:30 | NUR ---
Patient in room U 3026. I have received report from Irwin BOOTH and had the opportunity to ask questions and assume patient care. Patient is sleeping in bed. All needs met at this time.
[2021-08-12 07:00] VITALS: BP 103/41
[2021-08-12] MEDS: furosemide 10 MG/1 ML 10ml inj IV SCH (08:00)
[2021-08-12] MEDS: K and/or MAG REPLACEMENT MC SCH ×2 (08:00→20:00)
[2021-08-12 08:10] LABS: BASOPHILS % (AUTO) 0.4 % (0-1); EOSINOPHILS # (AUTO) 0.1 X10'3 (0-0.9); HEMATOCRIT 31.4 % (42.0-52.0); HEMOGLOBIN 10.5 g/dl (14.0-17.9); LYMPHOCYTES % (AUTO) 11.3 % (21-51); MEAN CORPUSCULAR HEMOGLOBIN 27.1 PG (27.0-31.0); MEAN CORPUSCULAR HGB CONC 33.3 g/dL (33.0-36.5); MEAN CORPUSCULAR VOLUME 81.4 FL (78-98); MEAN PLATELET VOLUME 8.4 FL (7.4-10.4); MONOCYTES # (AUTO) 0.5 X10'3 (0-0.9); MONOCYTES % (AUTO) 5.5 % (2-12); NEUTROPHILS # (AUTO) 7.1 X10'3 (1.8-7.7); NEUTROPHILS % (AUTO) 81.8 % (42-75); PLATELET COUNT 423 X10'3 (140-440); RED BLOOD COUNT 3.86 X10'6 (4.70-6.10); RED CELL DISTRIBUTION WIDTH 23.4 % (11.5-14.5); WHITE BLOOD COUNT 8.7 X10'3 (4.5-11.0)
[2021-08-12 08:23] LABS: ALANINE AMINOTRANSFERASE 18 U/L (12-78); ALBUMIN 1.6 G/DL (3.4-5.0); ALBUMIN/GLOBULIN RATIO 0.4 (1.1-1.5); ALKALINE PHOSPHATASE 91 IU/L (46-116); ANION GAP 7 (8-16); ASPARTATE AMINO TRANSFERASE 21 U/L (10-37); BILIRUBIN,TOTAL 0.6 MG/DL (0.1-1.0); BLOOD UREA NITROGEN 24 MG/DL (7-18); BUN/CREATININE RATIO 15.6 (5.4-32.0); CALCIUM 8.3 MG/DL (8.5-10.1); CHLORIDE 111 MMOL/L (99-107); CREATININE 1.54 MG/DL (0.60-1.10); GLUCOSE 111 MG/DL (70-104); POTASSIUM 4.3 MMOL/L (3.5-5.1); SODIUM 145 MMOL/L (135-145); TOTAL CARBON DIOXIDE 26.7 MMOL/L (24-32); TOTAL PROTEIN 5.8 G/DL (6.4-8.2); eGFR 43 ML/MIN
[2021-08-12] MEDS: potassium Cl 20 mEq SR tablet PO SCH (09:16)
[2021-08-12] MEDS: diltiazem 30mg tablet PO SCH ×2 (09:16→21:41)
[2021-08-12] MEDS: lactobacillus rhamnosus 10,000 MMU CELLS/CAPSULE PO SCH ×2 (09:16→21:41)
[2021-08-12] MEDS: aspirin 81mg, enteric-coated 1 TAB TABLET.DR PO SCH (09:16)
[2021-08-12] MEDS: pantoprazole 40mg Tablet.DR PO SCH (09:16)
[2021-08-12] MEDS: apixaban 5mg tablet PO SCH ×2 (09:16→21:42)
[2021-08-12 11:00] VITALS: BP 109/64
[2021-08-12] MEDS: HYDROcodone/acetaminophen 5mg/325mg tablet PO PRN (13:06)
[2021-08-12] MEDS ORDERED: Chloraseptic (Phenol) Spray 177ml MM PRN (13:10)
[2021-08-12 15:00] VITALS: BP 105/42
[2021-08-12 18:00] VITALS: BP 100/37
--- NOTE | 2021-08-12 18:00 | NUR ---
Patient in room PCU 3027. I have received report from Nicanor BOOTH and had the opportunity to ask questions and assume patient care. Addendum: 08/13/21 at 0607 by Marina Clay RN Amended: Links added.
--- NOTE | 2021-08-12 19:08 | NUR ---
Problems reprioritized. Patient report given, questions answered & plan of care reviewed with Marina BOOTH.
[2021-08-12] MEDS: Melatonin 3mg tablet PO PRN (21:41)
[2021-08-13 02:00] VITALS: BP 97/35
[2021-08-13] MEDS: mineral oil/petrolatum ophthal oint EACHEYE SCH ×4 (02:00→19:52)
[2021-08-13] MEDS: albuterol 2.5 MG/3 ML nebule NEB SCH ×5 (03:24→20:10)
[2021-08-13] MEDS: HYDROcodone/acetaminophen 5mg/325mg tablet PO PRN ×2 (03:25→15:19)
--- NOTE | 2021-08-13 07:46 | NUR ---
CAME TO SHIFT WITH 6 PTS, NO AIDE, NO OPERATIONAL ASSISTANT, AND NO BREAK NURSE. ALL NURSES HAVE 6 PTS AND THIS INCLUDES CHARGE NURSE. WILL BE UNABLE TO TAKE VITALS DUE TO PT LOAD. SUPER SHORT STAFFED HOSPITAL WIDE.
[2021-08-13 08:00] VITALS: BP 92/40
[2021-08-13] MEDS: K and/or MAG REPLACEMENT MC SCH ×2 (08:00→19:53)
[2021-08-13] MEDS ORDERED: furosemide 40mg/4ml inj IV SCH (08:00)
[2021-08-13] MEDS: diltiazem 30mg tablet PO SCH ×2 (08:00→19:54)
[2021-08-13] MEDS: apixaban 5mg tablet PO SCH ×2 (10:03→19:55)
[2021-08-13] MEDS: pantoprazole 40mg Tablet.DR PO SCH (10:04)
[2021-08-13] MEDS: potassium Cl 20 mEq SR tablet PO SCH (10:04)
[2021-08-13] MEDS: lactobacillus rhamnosus 10,000 MMU CELLS/CAPSULE PO SCH ×2 (10:04→19:55)
[2021-08-13] MEDS: aspirin 81mg, enteric-coated 1 TAB TABLET.DR PO SCH (10:04)
--- NOTE | 2021-08-13 10:52 | NUR ---
DUE TO OUT OF COMPLIANCE PATIENT TO NURSE RATIOS 6:1 ON A TELEMETRY FLOOR , I WILL NOT BE ABLE TO CHART SOME INTERVENTIONS OR FURTHER CHARTING. TRYING TO KEEP ALL MY PTS SAFE TILL THE END OF SHIFT IS MY MAIN CONCERN AND WITH NO RESOURCES AVAILABLE.
[2021-08-13 11:00] VITALS: BP 101/43
--- NOTE | 2021-08-13 11:48 | NUR ---
PT BP AT DATA INTEGRITY ANALYST WAS 110/72 hr
[2021-08-13 15:00] VITALS: BP 102/41
--- NOTE | 2021-08-13 15:51 | NUR ---
dr chi put in orders to DC pt Raza and DARRION drain. will complete this task per
[2021-08-13] MEDS: Potassium Cl inj 20 MEQ in normal saline 1000ml 990 ML IV SCH (17:55)
[2021-08-13 18:00] VITALS: BP 105/43
--- NOTE | 2021-08-13 18:25 | NUR ---
Problems reprioritized. Patient report given, questions answered & plan of care reviewed with Tanya singh.
--- NOTE | 2021-08-13 18:49 | NUR ---
Patient in room PCU 3026. I have received report from Mikki BOOTH and had the opportunity to ask questions and assume patient care.
[2021-08-13] MEDS: Melatonin 3mg tablet PO PRN (20:45)
[2021-08-13 22:00] VITALS: BP 111/41
--- NOTE | 2021-08-14 00:03 | NUR ---
Paged Dr Higgins per pt request for more sleep aid PAGER ID: [phone] MESSAGE: Re: Jay Villalba [id number], Pt is requesting something for sleep, already gave him his melatonin. Thank you, PCU
[2021-08-14] MEDS: albuterol 2.5 MG/3 ML nebule NEB SCH ×7 (00:08→23:00)
[2021-08-14] MEDS ORDERED: temazepam 15mg capsule PO ONE ×2 (00:10→19:25)
[2021-08-14] MEDS: mineral oil/petrolatum ophthal oint EACHEYE SCH ×4 (01:41→20:00)
[2021-08-14 02:00] VITALS: BP 106/30
--- NOTE | 2021-08-14 05:47 | NUR ---
Messaged pharmacy for new bag of IV K 20 meq.
[2021-08-14 06:00] VITALS: BP 105/37
--- NOTE | 2021-08-14 06:48 | NUR ---
Problems reprioritized. Patient report given, questions answered & plan of care reviewed with Nelda BOOTH.
--- NOTE | 2021-08-14 06:58 | NUR ---
Patient in room U 3026. I have received report from Tanya BOOTH Traveler and had the opportunity to ask questions and assume patient care.
[2021-08-14] MEDS: K and/or MAG REPLACEMENT MC SCH ×2 (08:00→20:00)
[2021-08-14] MEDS: diltiazem 30mg tablet PO SCH ×2 (08:00→20:00)
[2021-08-14] MEDS: lactobacillus rhamnosus 10,000 MMU CELLS/CAPSULE PO SCH ×2 (08:57→21:17)
[2021-08-14] MEDS: potassium Cl 20 mEq SR tablet PO SCH (08:57)
[2021-08-14] MEDS: aspirin 81mg, enteric-coated 1 TAB TABLET.DR PO SCH (08:57)
[2021-08-14] MEDS: Potassium Cl inj 20 MEQ in normal saline 1000ml 990 ML IV SCH (08:57)
[2021-08-14] MEDS: pantoprazole 40mg Tablet.DR PO SCH (08:57)
[2021-08-14] MEDS: apixaban 5mg tablet PO SCH ×2 (08:58→21:17)
[2021-08-14 09:55] LABS: BASOPHILS % (AUTO) 0.4 % (0-1); EOSINOPHILS # (AUTO) 0.1 X10'3 (0-0.9); EOSINOPHILS % (AUTO) 0.7 % (0-6); HEMATOCRIT 30.5 % (42.0-52.0); LYMPHOCYTES # (AUTO) 0.9 X10'3 (1.1-4.8); LYMPHOCYTES % (AUTO) 9.2 % (21-51); MEAN CORPUSCULAR HEMOGLOBIN 26.9 PG (27.0-31.0); MEAN CORPUSCULAR HGB CONC 32.9 g/dL (33.0-36.5); MEAN CORPUSCULAR VOLUME 81.9 FL (78-98); MEAN PLATELET VOLUME 8.5 FL (7.4-10.4); MONOCYTES # (AUTO) 0.6 X10'3 (0-0.9); MONOCYTES % (AUTO) 6.4 % (2-12); NEUTROPHILS # (AUTO) 8.2 X10'3 (1.8-7.7); NEUTROPHILS % (AUTO) 83.3 % (42-75); PLATELET COUNT 355 X10'3 (140-440); RED BLOOD COUNT 3.73 X10'6 (4.70-6.10); WHITE BLOOD COUNT 9.9 X10'3 (4.5-11.0)
[2021-08-14 10:22] LABS: ALANINE AMINOTRANSFERASE 14 U/L (12-78); ASPARTATE AMINO TRANSFERASE 18 U/L (10-37); BILIRUBIN,TOTAL 0.4 MG/DL (0.1-1.0); BLOOD UREA NITROGEN 28 MG/DL (7-18); BUN/CREATININE RATIO 16.9 (5.4-32.0); CHLORIDE 107 MMOL/L (99-107); CREATININE 1.66 MG/DL (0.60-1.10); GLUCOSE 139 MG/DL (70-104); POTASSIUM 4.1 MMOL/L (3.5-5.1); SODIUM 139 MMOL/L (135-145); eGFR 40 ML/MIN
[2021-08-14 10:26] LABS: ALBUMIN 1.6 G/DL (3.4-5.0); ALBUMIN/GLOBULIN RATIO 0.4 (1.1-1.5); ALKALINE PHOSPHATASE 95 IU/L (46-116); CALCIUM 8.6 MG/DL (8.5-10.1); TOTAL CARBON DIOXIDE 23.6 MMOL/L (24-32); TOTAL PROTEIN 5.7 G/DL (6.4-8.2)
[2021-08-14] MEDS: HYDROcodone/acetaminophen 5mg/325mg tablet PO PRN (10:34)
[2021-08-14 11:00] VITALS: BP 109/36
[2021-08-14 12:02] LABS: ANION GAP 8 (8-16)
--- NOTE | 2021-08-14 13:05 | NUR ---
WOUND VAC EDUCATION PROVIDED BY WOUND CARE 1. Patient instructed to call the Wound Center or their Home Health Agency immediately if: * They notice a change in the color or amount of the fluid in the canister. * Their wound looks more red than usual or has a foul smell. * The skin around their wound looks reddened or irritated. * The dressing feels loose or appears to be loose. * They experience any increase or changes in their pain. * The alarm will not turn off. 2. Patient instructed that they should not be disconnected from suction for more than 2 hours at a time. * If they are not able to get the suction back on, they need to remove the dressing and take all of the foam out of the wound. * Then moisten sterile gauze with normal saline and place on/in the wound. * Change the dressing once a day until arrangements have been made to replace the wound vac dressing. 3. Patient instructed to turn the wound vac machine OFF and call 911 or go to the ED immediately if their canister fills rapidly with blood. 4. If any of these occur while in the hospital tell a nurse immediately. WOUND INFECTION EDUCATION PROVIDED BY WOUND CARE 1. Patient instructed to call their primary doctor, or go the ED immediately if any of the following symptoms occur: * Increased pain in wound * Increase in drainage from the wound * Redness in the skin surrounding the wound * Warmth in the skin surrounding the wound * Bleeding from the wound * Temperature of 101 or greater 2. If any of these occur while in the hospital tell a nurse immediately. PRESSURE ULCER EDUCATION: DEFINITION: A pressure ulcer is an area of skin that breaks down when you stay in one position too long. The constant pressure against the skin reduces the blood flow to that area and the affected tissue dies. CAUSES: "Being bedridden or in a wheelchair "Fragile skin "Having a chronic condition, such as diabetes or vascular disease "Inability to move certain parts of your body without assistance "Older age "Incontinence of urine or stool SYMPTOMS: "A reddened area that DOES NOT turn white when pressed on - this can be the beginning of a pressure ulcer "A blister, deep sore or a crater - these can be advanced pressure ulcers FIRST AID: "Relieve the pressure on this area "Keep the area clean and dry "Call your primary doctor if you see any of the above symptoms "DO NOT massage the area "DO NOT use a donut shaped or ring shaped pillow- these actually interfere with the blood flow and cause complications PREVENTION: "Check for pressure ulcers everyday "Change position at least every two hours to relieve pressure "Use items that help relieve pressure- pillows, sheepskin, foam padding, and powders. "Keep skin clean and dry "Eat healthy well balanced meals "Exercise daily IF YOU SEE ANY OF THESE SYMPTOMS WHILE IN THE HOSPITAL - TELL YOUR NURSE IMMEDIATELY. IF YOU SEE ANY OF THESE SYMPTOMS WHILE AT HOME OR HAVE ANY QUESTIONS OR CONCERNS ABOUT PRESSURE ULCERS - CALL YOUR PRIMARY DOCTOR IMMEDIATELY. Addendum: 08/14/21 at 1306 by Sarahi Murphy RN Amended: Links added.
--- NOTE | 2021-08-14 14:42 | NUR ---
Reassessment: Pt has been advanced to Regular diet 08/11 w/ moderately low PO intake, avg 42% x 8 meals which meets 52% of est energy needs and 43% of est protein needs. Pt may benefit from Charlie smoothies BID to assist w/ wound healing as well as Ensure Enlive BID for additional calories and protein. Pt noted w/ 300ml stool output 08/13. Will continue to monitor. Recommendations: 1) Advance to low fiber diet as medically indicated in view of recent GI surgery 2) Charlie BIDBD/ Ensure Enlive BIDLD; pending MD verification 3) Bowel care per MD 4) Weekly scaled weights Addendum: 08/14/21 at [address] Amended: Links added.
[2021-08-14 15:00] VITALS: BP 103/62
[2021-08-14 18:00] VITALS: BP 118/41
--- NOTE | 2021-08-14 18:35 | NUR ---
Problems reprioritized. Patient report given, questions answered & plan of care reviewed with Tanya BOOTH traveler.
--- NOTE | 2021-08-14 18:40 | NUR ---
Patient in room PCU 3026. I have received report from Nelda BOOTH and had the opportunity to ask questions and assume patient care.
--- NOTE | 2021-08-14 19:23 | NUR ---
Paged Dr Perez for sleep aid pill. PAGER ID: [phone] MESSAGE: Re: Jay Villalba. Can I get an order a temazepam pill to help pt sleep? He had one last night and is requesting it again. It was a one time order. SCOTT Martínez.
[2021-08-14 22:00] VITALS: BP 115/41
[2021-08-15] MEDS: Potassium Cl inj 20 MEQ in normal saline 1000ml 990 ML IV SCH ×2 (00:07→12:49)
[2021-08-15] MEDS: mineral oil/petrolatum ophthal oint EACHEYE SCH ×2 (01:46→08:00)
[2021-08-15 02:00] VITALS: BP 107/39
[2021-08-15] MEDS: albuterol 2.5 MG/3 ML nebule NEB SCH ×6 (03:00→23:00)
--- NOTE | 2021-08-15 05:13 | NUR ---
Pt was resting comfortably throughout the night. He was monitored per unit protocol, frequently rounded on, and had call light nearby.
[2021-08-15 06:11] LABS: BASOPHILS % (AUTO) 0.4 % (0-1); EOSINOPHILS % (AUTO) 0.5 % (0-6); HEMATOCRIT 30.7 % (42.0-52.0); HEMOGLOBIN 10.1 g/dl (14.0-17.9); LYMPHOCYTES # (AUTO) 0.9 X10'3 (1.1-4.8); LYMPHOCYTES % (AUTO) 9.7 % (21-51); MEAN CORPUSCULAR HEMOGLOBIN 27.1 PG (27.0-31.0); MEAN CORPUSCULAR VOLUME 82.3 FL (78-98); MEAN PLATELET VOLUME 8.4 FL (7.4-10.4); MONOCYTES # (AUTO) 0.7 X10'3 (0-0.9); MONOCYTES % (AUTO) 7.8 % (2-12); NEUTROPHILS # (AUTO) 7.2 X10'3 (1.8-7.7); NEUTROPHILS % (AUTO) 81.6 % (42-75); PLATELET COUNT 355 X10'3 (140-440); RED BLOOD COUNT 3.73 X10'6 (4.70-6.10); RED CELL DISTRIBUTION WIDTH 22.4 % (11.5-14.5); WHITE BLOOD COUNT 8.9 X10'3 (4.5-11.0)
--- NOTE | 2021-08-15 06:26 | NUR ---
Problems reprioritized. Patient report given, questions answered & plan of care reviewed with Harmony BOOTH.
[2021-08-15 06:28] LABS: ALANINE AMINOTRANSFERASE 17 U/L (12-78); ALBUMIN 1.6 G/DL (3.4-5.0); ALBUMIN/GLOBULIN RATIO 0.4 (1.1-1.5); ALKALINE PHOSPHATASE 102 IU/L (46-116); ANION GAP 10 (8-16); ASPARTATE AMINO TRANSFERASE 21 U/L (10-37); BILIRUBIN,TOTAL 0.4 MG/DL (0.1-1.0); BLOOD UREA NITROGEN 25 MG/DL (7-18); BUN/CREATININE RATIO 15.4 (5.4-32.0); CALCIUM 8.5 MG/DL (8.5-10.1); CHLORIDE 106 MMOL/L (99-107); CREATININE 1.62 MG/DL (0.60-1.10); GLUCOSE 104 MG/DL (70-104); POTASSIUM 4.4 MMOL/L (3.5-5.1); SODIUM 139 MMOL/L (135-145); TOTAL CARBON DIOXIDE 23.3 MMOL/L (24-32); TOTAL PROTEIN 5.9 G/DL (6.4-8.2); eGFR 41 ML/MIN
--- NOTE | 2021-08-15 06:59 | NUR ---
Report received, assumed care
[2021-08-15 07:09] VITALS: BP 115/31
[2021-08-15] MEDS: K and/or MAG REPLACEMENT MC SCH ×2 (08:00→19:45)
[2021-08-15] MEDS: apixaban 5mg tablet PO SCH ×2 (08:10→19:39)
[2021-08-15] MEDS: diltiazem 30mg tablet PO SCH ×2 (08:10→19:40)
[2021-08-15] MEDS: lactobacillus rhamnosus 10,000 MMU CELLS/CAPSULE PO SCH ×2 (08:10→19:40)
[2021-08-15] MEDS: aspirin 81mg, enteric-coated 1 TAB TABLET.DR PO SCH (08:10)
[2021-08-15] MEDS: pantoprazole 40mg Tablet.DR PO SCH (08:10)
[2021-08-15] MEDS: potassium Cl 20 mEq SR tablet PO SCH (08:10)
[2021-08-15 11:00] VITALS: BP 114/34
[2021-08-15 18:00] VITALS: BP 111/56
--- NOTE | 2021-08-15 18:20 | NUR ---
Problems reprioritized. Patient report given, questions answered & plan of care reviewed with Selena BOOTH.
--- NOTE | 2021-08-15 18:30 | NUR ---
Patient in room PCU 3026. I have received report from ILANA BOOTH and had the opportunity to ask questions and assume patient care.
[2021-08-15 22:00] VITALS: BP 108/54
[2021-08-15] MEDS: HYDROcodone/acetaminophen 5mg/325mg tablet PO PRN (22:50)
[2021-08-16 02:00] VITALS: BP 119/52
[2021-08-16] MEDS: Potassium Cl inj 20 MEQ in normal saline 1000ml 990 ML IV SCH ×2 (03:07→17:25)
[2021-08-16] MEDS: albuterol 2.5 MG/3 ML nebule NEB SCH ×4 (03:43→15:00)
[2021-08-16 06:00] VITALS: BP 151/46
[2021-08-16 06:09] LABS: BASOPHILS % (AUTO) 0.4 % (0-1); EOSINOPHILS # (AUTO) 0.1 X10'3 (0-0.9); EOSINOPHILS % (AUTO) 0.6 % (0-6); HEMATOCRIT 30.7 % (42.0-52.0); HEMOGLOBIN 10.1 g/dl (14.0-17.9); LYMPHOCYTES % (AUTO) 12.8 % (21-51); MEAN CORPUSCULAR HEMOGLOBIN 27.5 PG (27.0-31.0); MEAN CORPUSCULAR VOLUME 83.1 FL (78-98); MEAN PLATELET VOLUME 8.4 FL (7.4-10.4); MONOCYTES # (AUTO) 0.7 X10'3 (0-0.9); MONOCYTES % (AUTO) 8.7 % (2-12); NEUTROPHILS # (AUTO) 6.3 X10'3 (1.8-7.7); NEUTROPHILS % (AUTO) 77.5 % (42-75); PLATELET COUNT 322 X10'3 (140-440); RED BLOOD COUNT 3.69 X10'6 (4.70-6.10); RED CELL DISTRIBUTION WIDTH 21.6 % (11.5-14.5); WHITE BLOOD COUNT 8.2 X10'3 (4.5-11.0)
--- NOTE | 2021-08-16 06:30 | NUR ---
Problems reprioritized. Patient report given, questions answered & plan of care reviewed with ANAYA BOOTH.
[2021-08-16 06:38] LABS: ALANINE AMINOTRANSFERASE 19 U/L (12-78); ALBUMIN 1.6 G/DL (3.4-5.0); ALBUMIN/GLOBULIN RATIO 0.4 (1.1-1.5); ALKALINE PHOSPHATASE 106 IU/L (46-116); ANION GAP 11 (8-16); ASPARTATE AMINO TRANSFERASE 26 U/L (10-37); BILIRUBIN,TOTAL 0.4 MG/DL (0.1-1.0); BLOOD UREA NITROGEN 21 MG/DL (7-18); BUN/CREATININE RATIO 14.7 (5.4-32.0); CALCIUM 8.5 MG/DL (8.5-10.1); CHLORIDE 108 MMOL/L (99-107); CREATININE 1.43 MG/DL (0.60-1.10); GLUCOSE 101 MG/DL (70-104); POTASSIUM 4.2 MMOL/L (3.5-5.1); SODIUM 139 MMOL/L (135-145); TOTAL CARBON DIOXIDE 20.5 MMOL/L (24-32); TOTAL PROTEIN 5.9 G/DL (6.4-8.2); eGFR 47 ML/MIN
[2021-08-16] MEDS: K and/or MAG REPLACEMENT MC SCH (08:00)
[2021-08-16] MEDS: lactobacillus rhamnosus 10,000 MMU CELLS/CAPSULE PO SCH (08:21)
[2021-08-16] MEDS: apixaban 5mg tablet PO SCH (08:21)
[2021-08-16] MEDS: diltiazem 30mg tablet PO SCH (08:21)
[2021-08-16] MEDS: potassium Cl 20 mEq SR tablet PO SCH (08:21)
[2021-08-16] MEDS: pantoprazole 40mg Tablet.DR PO SCH (08:21)
[2021-08-16] MEDS: aspirin 81mg, enteric-coated 1 TAB TABLET.DR PO SCH (08:22)
[2021-08-16] MEDS: HYDROcodone/acetaminophen 5mg/325mg tablet PO PRN (10:07)
[2021-08-16 11:00] VITALS: BP 111/45
[2021-08-16 15:00] VITALS: BP 113/66
--- NOTE | 2021-08-16 17:35 | NUR ---
[facility] IV will stay in place. Daughter Clarissa was informed and is aware of patient transfer. Patient has been repositioned q2h. Colostomy bag drained 3x.
--- NOTE | 2021-08-16 18:30 | NUR ---
Problems reprioritized. Patient report given, questions answered & plan of care reviewed with Pat RN.
[2021-08-16] MEDS ORDERED: potassium Cl 20mEq in NS 1,000 ML IV SCH (21:15)
== END 2021-08-16 19:10 | DRG 329 ==
LOC: PAS IN 06:08 → SUR 3N 17:37 → PCU 3S 07-30 15:03 → CICU 2S 08-05 16:25 → PCU 3S 08-09 15:03
PROVIDERS: ADMIT Surgery; ATTEND Surgery
PROC: 0DSB0ZZ Reposition Ileum, Open Approach (ICD-10-PCS; 2021-07-25)
PROC: 0DSL0ZZ Reposition Transverse Colon, Open Approach (ICD-10-PCS; 2021-07-25)
PROC: 0DSN0ZZ Reposition Sigmoid Colon, Open Approach (ICD-10-PCS; 2021-07-25)
PROC: 0DBK8ZZ Excision of Ascending Colon, Via Natural or Artificial Opening Endoscopic (ICD-10-PCS; 2021-07-25)
PROC: 0DNW0ZZ Release Peritoneum, Open Approach (ICD-10-PCS; principal; 2021-07-25 10:48)
PROC: 0WQF0ZZ Repair Abdominal Wall, Open Approach (ICD-10-PCS; 2021-07-30)
PROC: 0D1L0Z4 Bypass Transverse Colon to Cutaneous, Open Approach (ICD-10-PCS; 2021-08-05)
PROC: 0DNW0ZZ Release Peritoneum, Open Approach (ICD-10-PCS; 2021-08-05)
PROC: 0DSN0ZZ Reposition Sigmoid Colon, Open Approach (ICD-10-PCS; 2021-08-05)
PROC: 30233N1 Transfusion of Nonautologous Red Blood Cells into Peripheral Vein, Percutaneous Approach (ICD-10-PCS; 2021-08-05)
PROC: 5A09357 Assistance with Respiratory Ventilation, Less than 24 Consecutive Hours, Continuous Positive Airway Pressure (ICD-10-PCS; 2021-08-07)
PROC: 5A09357 Assistance with Respiratory Ventilation, Less than 24 Consecutive Hours, Continuous Positive Airway Pressure (ICD-10-PCS; 2021-08-08)
DX: Z43.2 Encounter for attention to ileostomy (principal); A41.9 Sepsis, unspecified organism; N17.0 Acute kidney failure with tubular necrosis; E43 Unspecified severe protein-calorie malnutrition; J96.02 Acute respiratory failure with hypercapnia; K65.9 Peritonitis, unspecified; C18.9 Malignant neoplasm of colon, unspecified; Z68.43 Body mass index [BMI] 50.0-59.9, adult; K91.89 Other postprocedural complications and disorders of digestive system; J81.1 Chronic pulmonary edema; Z43.3 Encounter for attention to colostomy; I48.91 Unspecified atrial fibrillation; I95.9 Hypotension, unspecified; Y83.2 Surgical operation with anastomosis, bypass or graft as the cause of abnormal reaction of the patient, or of later complication, without mention of misadventure at the time of the procedure; Y92.230 Patient room in hospital as the place of occurrence of the external cause; K57.90 Diverticulosis of intestine, part unspecified, without perforation or abscess without bleeding; K66.0 Peritoneal adhesions (postprocedural) (postinfection); N18.9 Chronic kidney disease, unspecified; Z85.048 Personal history of other malignant neoplasm of rectum, rectosigmoid junction, and anus; Z79.899 Other long term (current) drug therapy; E87.6 Hypokalemia
CPT/HCPCS: 36415; 36430; 36600; 44394; 45378; 71045; 74018; 74176; 80048; 80053; 80162; 82803; 82948; 83735; 84100; 84132; 85007; 85008; 85018; 85025; 85610; 85730; 86885; 86900; 86901; 86920; 87070; 87081; 93005; 94002; 94003; 94640; 94760; 97110; 97116; 97161; 97530; 97535; 99152; 99153; A4215; A4618; A4620; A6253; A6402; A6407; A6446; A6449; A7000; C1751; C1758; C1773; C9113; C9290; G0378; J0131; J0282; J0694; J1100; J1160; J1170; J1650; J1940; J2175; J2250; J2270; J2370; J2405; J2543; J2704; J2710; J3010; J3480; J3490; J7030; J7040; J7060; J7120; J7168; P9016; P9045; Q9963; U0003; U0005

== ENCOUNTER 2021-08-22 18:42 | Inpatient (IN) | payer OTHER, MEDICARE ==
[~2021-08-22] VITALS: Ht 170.2 cm; Wt 68.2 kg
[~2021-08-22 18:42] MED LIST changes: -cefoxitin sod inj 2,000 MG in dextrose 5%-water 100 ML IV ONE; -famotidine 20mg tablet PO ONE; -ringers solution, lacted 1,000 ML IV SCH
[2021-08-22] MEDS ORDERED: temazepam 15mg capsule PO PRN (21:00)
[2021-08-22 21:26] LABS: BASOPHILS % (AUTO) 0.7 % (0-1); EOSINOPHILS # (AUTO) 0.1 X10'3 (0-0.9); EOSINOPHILS % (AUTO) 1.2 % (0-6); HEMATOCRIT 28.5 % (42.0-52.0); HEMOGLOBIN 9.6 g/dl (14.0-17.9); LYMPHOCYTES # (AUTO) 1.2 X10'3 (1.1-4.8); LYMPHOCYTES % (AUTO) 20.5 % (21-51); MEAN CORPUSCULAR HEMOGLOBIN 27.6 PG (27.0-31.0); MEAN CORPUSCULAR HGB CONC 33.8 g/dL (33.0-36.5); MEAN CORPUSCULAR VOLUME 81.5 FL (78-98); MEAN PLATELET VOLUME 7.2 FL (7.4-10.4); MONOCYTES # (AUTO) 0.4 X10'3 (0-0.9); MONOCYTES % (AUTO) 6.4 % (2-12); NEUTROPHILS # (AUTO) 4.2 X10'3 (1.8-7.7); NEUTROPHILS % (AUTO) 71.2 % (42-75); PLATELET COUNT 252 X10'3 (140-440); RED BLOOD COUNT 3.49 X10'6 (4.70-6.10); RED CELL DISTRIBUTION WIDTH 19.5 % (11.5-14.5)
[2021-08-22 21:31] LABS: CLARITY,URINE SLIGHTLY CLOUDY (Clear); COLOR,URINE YELLOW (Yellow); GLUCOSE, URINE NEGATIVE (Neg); KETONES,URINE NEGATIVE (Neg); LEUKOCYTE ESTERASE ,URINE NEGATIVE (Neg); NITRITES, URINE NEGATIVE (Neg); OCCULT BLOOD,URINE TRACE-INTACT (Neg); PROTEIN,URINE NEGATIVE (Neg); UROBILINOGEN,URINE 0.2 E.U/dL (0.2-1.0)
[2021-08-22 21:38] LABS: UA COLLECTION TYPE NON-SPECIFIED
[2021-08-22 21:41] LABS: ALANINE AMINOTRANSFERASE 20 U/L (12-78); ALBUMIN 1.6 G/DL (3.4-5.0); ALBUMIN/GLOBULIN RATIO 0.4 (1.1-1.5); ALKALINE PHOSPHATASE 100 IU/L (46-116); ANION GAP 8 (8-16); ASPARTATE AMINO TRANSFERASE 19 U/L (10-37); BILIRUBIN,TOTAL 0.3 MG/DL (0.1-1.0); BLOOD UREA NITROGEN 10 MG/DL (7-18); BUN/CREATININE RATIO 8.9 (5.4-32.0); CALCIUM 7.9 MG/DL (8.5-10.1); CHLORIDE 110 MMOL/L (99-107); CREATININE 1.12 MG/DL (0.60-1.10); GLUCOSE 109 MG/DL (70-104); LIPASE 95 U/L (73-393); SODIUM 142 MMOL/L (135-145); TOTAL CARBON DIOXIDE 24.1 MMOL/L (24-32); TOTAL PROTEIN 5.2 G/DL (6.4-8.2); eGFR 63 ML/MIN
[2021-08-22 21:47] LABS: SQUAMOUS EPITHELIAL CELL,UR FEW /LPF (FEW)
[2021-08-22 21:48] LABS: BACTERIA,URINE NONE SEEN /HPF (Neg); RBC,URINE 0-2 /HPF (0-2); WBC,URINE 0-4 /HPF (0-4)
[2021-08-22] MEDS ORDERED: potassium Cl 10 mEq/100mL bag IV ONE (22:15)
[2021-08-22] MEDS ORDERED: normal saline 1000ml 1,000 ML IV ONE (22:25)
[2021-08-22] MEDS ORDERED: ondansetron/PF 4mg/2ml inj IV PRN (22:45)
[2021-08-22] MEDS ORDERED: magnesium 2GM in 50ml NS 50 ML IV PRN (22:45)
[2021-08-22] MEDS ORDERED: magnesium 4gm in 100ml NS 100 ML IV PRN (22:45)
[2021-08-22] MEDS ORDERED: magnesium hydroxide 30ml (MOM) UD suspension PO PRN (22:45)
[2021-08-22] MEDS ORDERED: diphenhydrAMINE 50 mg/ml inj IV PRN (22:45)
[2021-08-22] MEDS ORDERED: acetaminophen 650mg rectal suppository RC PRN (22:45)
[2021-08-22] MEDS ORDERED: acetaminophen 325mg tablet PO PRN ×2 (22:45)
[2021-08-22] MEDS ORDERED: magnesium Cl slow-release 64mg tablet PO PRN (22:45)
[2021-08-22] MEDS ORDERED: diphenhydrAMINE 25mg capsule PO PRN (22:45)
[2021-08-22] MEDS ORDERED: morphine 2 MG/ML inj. syringe IV PRN (22:45)
[2021-08-22] MEDS ORDERED: potassium Cl 20 mEq SR tablet PO PRN (22:45)
[2021-08-22] MEDS ORDERED: bisacodyl 10mg suppository rectal RC PRN (22:45)
[2021-08-22] MEDS ORDERED: mag hydrox/Alum hydrox/simeth 30ml oral suspension PO PRN (22:45)
[2021-08-22] MEDS ORDERED: ondansetron 4mg rapidly disintigrating tab PO PRN (22:45)
[2021-08-22] MEDS ORDERED: magnesium citrate 296ml oral solution PO ONE (22:50)
[2021-08-22] MEDS ORDERED: LIDOcaine 2% 10ml TOPICAL JELLY (Urojet) TP ONE (22:50)
[2021-08-22 23:06] LABS: HEMOGLOBIN A1C 5.8 % (4.5-6.2)
[2021-08-22 23:19] LABS: MAGNESIUM 1.5 MG/DL (1.5-2.4); PHOSPHORUS 2.3 MG/DL (2.3-4.5)
[2021-08-22 23:22] LABS: PLATELET ESTIMATE NORMAL
[2021-08-22 23:23] LABS: ANISOCYTOSIS 2+; POLYCHROMASIA FEW
[2021-08-22 23:43] LABS: APTT 32 SECONDS (22-32)
--- NOTE | 2021-08-23 | NUR ---
DR PUGA APPROVED USE OF PT LINE ALREADY IN PLACE
[2021-08-23] MEDS: normal saline 1000ml 1,000 ML IV SCH ×3 (00:28→18:45)
[2021-08-23] MEDS: piperacillin/tazo 3.375gm/50ml 50 ML IV SCH ×4 (00:29→23:49)
--- NOTE | 2021-08-23 04:22 | NUR ---
PT OSTOMY BAG FOUND TO BE LEAKING. PT HAD FECES SATURATING ALL DRESSINGS ON WOUNDS TO ABDOMEN WELL. CHANGED LINENS, GOWN, BANDAGES AND OSTOMY BAG
[2021-08-23] MEDS: HYDROcodone/acetaminophen 5mg/325mg tablet PO PRN (06:26)
[2021-08-23] MEDS: pantoprazole 40mg Tablet.DR PO SCH (07:30)
[2021-08-23 07:35] LABS: BASOPHILS % (AUTO) 0.5 % (0-1); EOSINOPHILS # (AUTO) 0.1 X10'3 (0-0.9); EOSINOPHILS % (AUTO) 1.6 % (0-6); HEMATOCRIT 28.9 % (42.0-52.0); HEMOGLOBIN 9.6 g/dl (14.0-17.9); LYMPHOCYTES # (AUTO) 1.1 X10'3 (1.1-4.8); LYMPHOCYTES % (AUTO) 19.7 % (21-51); MEAN CORPUSCULAR HEMOGLOBIN 27.2 PG (27.0-31.0); MEAN CORPUSCULAR VOLUME 82.5 FL (78-98); MEAN PLATELET VOLUME 7.6 FL (7.4-10.4); MONOCYTES # (AUTO) 0.4 X10'3 (0-0.9); MONOCYTES % (AUTO) 6.9 % (2-12); NEUTROPHILS % (AUTO) 71.3 % (42-75); PLATELET COUNT 226 X10'3 (140-440); RED BLOOD COUNT 3.51 X10'6 (4.70-6.10); RED CELL DISTRIBUTION WIDTH 19.8 % (11.5-14.5); WHITE BLOOD COUNT 5.7 X10'3 (4.5-11.0)
[2021-08-23] MEDS: docusate sod 100mg capsule PO SCH ×2 (08:00→19:33)
[2021-08-23 08:25] LABS: ALANINE AMINOTRANSFERASE 21 U/L (12-78); ALBUMIN 1.5 G/DL (3.4-5.0); ALBUMIN/GLOBULIN RATIO 0.4 (1.1-1.5); ALKALINE PHOSPHATASE 101 IU/L (46-116); ANION GAP 12 (8-16); ASPARTATE AMINO TRANSFERASE 29 U/L (10-37); BILIRUBIN,TOTAL 0.3 MG/DL (0.1-1.0); BLOOD UREA NITROGEN 11 MG/DL (7-18); BUN/CREATININE RATIO 9.6 (5.4-32.0); CALCIUM 7.9 MG/DL (8.5-10.1); CHLORIDE 112 MMOL/L (99-107); CREATININE 1.15 MG/DL (0.60-1.10); GLUCOSE 102 MG/DL (70-104); MAGNESIUM 1.6 MG/DL (1.5-2.4); SODIUM 145 MMOL/L (135-145); TOTAL CARBON DIOXIDE 21.2 MMOL/L (24-32); TOTAL PROTEIN 5.4 G/DL (6.4-8.2); eGFR 61 ML/MIN
[2021-08-23 09:00] VITALS: BP 112/49
[2021-08-23 11:00] VITALS: BP 110/47
[2021-08-23] MEDS: heparin, porcine 5000 units/ml vial SQ SCH ×2 (11:24→19:33)
[2021-08-23] MEDS: K and/or MAG REPLACEMENT MC SCH ×2 (13:38→19:33)
[2021-08-23] MEDS: potassium CL 10mEq/100ml bag 100 ML IV PRN ×5 (13:39→22:08)
[2021-08-23] MEDS ORDERED: MINE120C5 TP (13:46)
[2021-08-23] MEDS ORDERED: FOLI0.4T14 PO (13:46)
[2021-08-23] MEDS ORDERED: CYAN500T9 PO (13:46)
[2021-08-23 15:00] VITALS: BP 105/41
--- NOTE | 2021-08-23 17:57 | NUR ---
PAGER ID: [phone] MESSAGE: [phone]. Jay Villalba. Can I get a diet order? Mira [phone]
--- NOTE | 2021-08-23 18:00 | NUR ---
pt has been rounded on q1H and pt repositions self throughout shift.
--- NOTE | 2021-08-23 19:45 | NUR ---
CHG bath given. Pt continues to be NPO. Pt sleep well.
[2021-08-23] MEDS: diatr meglu/diatrizoate 30ml oral sol.-(3 dose) bottle PO SCH (20:55)
[2021-08-23 22:00] VITALS: BP 105/52
[2021-08-24 02:00] VITALS: BP 101/47
[2021-08-24] MEDS: potassium CL 10mEq/100ml bag 100 ML IV PRN (03:35)
[2021-08-24] MEDS: normal saline 1000ml 1,000 ML IV SCH ×3 (04:45→22:09)
[2021-08-24 06:00] VITALS: BP 123/54
[2021-08-24 06:55] LABS: BASOPHILS % (AUTO) 0.5 % (0-1); EOSINOPHILS # (AUTO) 0.1 X10'3 (0-0.9); EOSINOPHILS % (AUTO) 2.5 % (0-6); HEMATOCRIT 30.7 % (42.0-52.0); LYMPHOCYTES # (AUTO) 1.1 X10'3 (1.1-4.8); LYMPHOCYTES % (AUTO) 18.8 % (21-51); MEAN CORPUSCULAR HEMOGLOBIN 27.2 PG (27.0-31.0); MEAN CORPUSCULAR HGB CONC 32.7 g/dL (33.0-36.5); MEAN CORPUSCULAR VOLUME 83.1 FL (78-98); MEAN PLATELET VOLUME 7.9 FL (7.4-10.4); MONOCYTES # (AUTO) 0.4 X10'3 (0-0.9); MONOCYTES % (AUTO) 7.1 % (2-12); NEUTROPHILS % (AUTO) 71.1 % (42-75); PLATELET COUNT 219 X10'3 (140-440); RED BLOOD COUNT 3.69 X10'6 (4.70-6.10); RED CELL DISTRIBUTION WIDTH 19.5 % (11.5-14.5); WHITE BLOOD COUNT 5.7 X10'3 (4.5-11.0)
[2021-08-24 07:22] LABS: ALANINE AMINOTRANSFERASE 27 U/L (12-78); ALBUMIN 1.5 G/DL (3.4-5.0); ALBUMIN/GLOBULIN RATIO 0.4 (1.1-1.5); ALKALINE PHOSPHATASE 125 IU/L (46-116); ANION GAP 9 (8-16); ASPARTATE AMINO TRANSFERASE 33 U/L (10-37); BILIRUBIN,TOTAL 0.3 MG/DL (0.1-1.0); BLOOD UREA NITROGEN 12 MG/DL (7-18); BUN/CREATININE RATIO 8.6 (5.4-32.0); CALCIUM 7.9 MG/DL (8.5-10.1); CHLORIDE 108 MMOL/L (99-107); GLUCOSE 97 MG/DL (70-104); MAGNESIUM 1.5 MG/DL (1.5-2.4); POTASSIUM 3.3 MMOL/L (3.5-5.1); SODIUM 140 MMOL/L (135-145); TOTAL CARBON DIOXIDE 23.3 MMOL/L (24-32); TOTAL PROTEIN 5.1 G/DL (6.4-8.2); eGFR 49 ML/MIN
[2021-08-24] MEDS: piperacillin/tazo 3.375gm/50ml 50 ML IV SCH ×3 (09:04→23:47)
[2021-08-24] MEDS: cyanocobalamin 500mcg tablet PO SCH (09:05)
[2021-08-24] MEDS: docusate sod 100mg capsule PO SCH ×2 (09:05→20:00)
[2021-08-24] MEDS: heparin, porcine 5000 units/ml vial SQ SCH ×2 (09:05→20:07)
[2021-08-24] MEDS: pantoprazole 40mg Tablet.DR PO SCH (09:05)
[2021-08-24] MEDS: aspirin 81mg, enteric-coated 1 TAB TABLET.DR PO SCH (09:05)
[2021-08-24] MEDS: folic acid 0.4mg tablet PO SCH (09:05)
[2021-08-24] MEDS: mineral oil/petrolatum, white cream 113gm jar TP SCH (09:06)
[2021-08-24] MEDS: diatr meglu/diatrizoate 30ml oral sol.-(3 dose) bottle PO SCH ×2 (09:06→10:26)
[2021-08-24 10:00] VITALS: BP 106/47
[2021-08-24] MEDS: K and/or MAG REPLACEMENT MC SCH ×2 (10:29→20:00)
[2021-08-24] MEDS ORDERED: iohexol 300mg/ml 100ml inj. ONE (10:51)
[2021-08-24 18:00] VITALS: BP 101/53
[2021-08-24] MEDS: potassium Cl 20 mEq SR tablet PO PRN ×2 (18:24→22:04)
--- NOTE | 2021-08-24 18:46 | NUR ---
Patient in room MED 318. I have received report from LEOBARDO Herman and had the opportunity to ask questions and assume patient care.
[2021-08-24 18:58] VITALS: BP 111/52
[2021-08-24 22:00] VITALS: BP 94/47
[2021-08-25 02:00] VITALS: BP 116/50
[2021-08-25] MEDS: potassium Cl 20 mEq SR tablet PO PRN (02:32)
[2021-08-25 05:17] LABS: BASOPHILS % (AUTO) 0.6 % (0-1); EOSINOPHILS # (AUTO) 0.1 X10'3 (0-0.9); EOSINOPHILS % (AUTO) 3.1 % (0-6); HEMOGLOBIN 9.4 g/dl (14.0-17.9); LYMPHOCYTES # (AUTO) 1.1 X10'3 (1.1-4.8); LYMPHOCYTES % (AUTO) 24.5 % (21-51); MEAN CORPUSCULAR HEMOGLOBIN 27.4 PG (27.0-31.0); MEAN CORPUSCULAR HGB CONC 33.5 g/dL (33.0-36.5); MEAN CORPUSCULAR VOLUME 81.9 FL (78-98); MEAN PLATELET VOLUME 7.6 FL (7.4-10.4); MONOCYTES # (AUTO) 0.3 X10'3 (0-0.9); MONOCYTES % (AUTO) 6.2 % (2-12); NEUTROPHILS # (AUTO) 3.1 X10'3 (1.8-7.7); NEUTROPHILS % (AUTO) 65.6 % (42-75); PLATELET COUNT 198 X10'3 (140-440); RED BLOOD COUNT 3.42 X10'6 (4.70-6.10); RED CELL DISTRIBUTION WIDTH 19.7 % (11.5-14.5); WHITE BLOOD COUNT 4.7 X10'3 (4.5-11.0)
[2021-08-25 05:32] LABS: ALANINE AMINOTRANSFERASE 22 U/L (12-78); ALBUMIN 1.6 G/DL (3.4-5.0); ALBUMIN/GLOBULIN RATIO 0.5 (1.1-1.5); ALKALINE PHOSPHATASE 106 IU/L (46-116); ANION GAP 11 (8-16); ASPARTATE AMINO TRANSFERASE 21 U/L (10-37); BILIRUBIN,TOTAL 0.3 MG/DL (0.1-1.0); BLOOD UREA NITROGEN 11 MG/DL (7-18); BUN/CREATININE RATIO 8.7 (5.4-32.0); CALCIUM 7.7 MG/DL (8.5-10.1); CHLORIDE 108 MMOL/L (99-107); CREATININE 1.26 MG/DL (0.60-1.10); GLUCOSE 70 MG/DL (70-104); MAGNESIUM 1.5 MG/DL (1.5-2.4); POTASSIUM 3.5 MMOL/L (3.5-5.1); SODIUM 140 MMOL/L (135-145); TOTAL CARBON DIOXIDE 20.9 MMOL/L (24-32); eGFR 55 ML/MIN
[2021-08-25 06:00] VITALS: BP 108/53
--- NOTE | 2021-08-25 06:50 | NUR ---
Problems reprioritized. Patient report given, questions answered & plan of care reviewed with LEOBARDO Renee.
[2021-08-25 07:37] LABS: PLATELET ESTIMATE NORMAL; TOTAL CELLS COUNTED 100
[2021-08-25 07:38] LABS: ANISOCYTOSIS 2+; SMUDGE CELLS 1+
[2021-08-25 07:39] LABS: POLYCHROMASIA 1+
[2021-08-25 07:40] LABS: ELLIPTOCYTES 1+
[2021-08-25] MEDS: mineral oil/petrolatum, white cream 113gm jar TP SCH (08:00)
[2021-08-25] MEDS: K and/or MAG REPLACEMENT MC SCH ×2 (08:00→20:00)
[2021-08-25] MEDS: normal saline 1000ml 1,000 ML IV SCH ×2 (08:40→20:25)
[2021-08-25] MEDS: pantoprazole 40mg Tablet.DR PO SCH (08:43)
[2021-08-25] MEDS: cyanocobalamin 500mcg tablet PO SCH (08:43)
[2021-08-25] MEDS: docusate sod 100mg capsule PO SCH ×2 (08:43→20:25)
[2021-08-25] MEDS: aspirin 81mg, enteric-coated 1 TAB TABLET.DR PO SCH (08:43)
[2021-08-25] MEDS: piperacillin/tazo 3.375gm/50ml 50 ML IV SCH ×2 (08:44→16:19)
[2021-08-25] MEDS: heparin, porcine 5000 units/ml vial SQ SCH ×2 (08:44→20:24)
[2021-08-25] MEDS: folic acid 0.4mg tablet PO SCH (08:44)
[2021-08-25 10:00] VITALS: BP 95/43
[2021-08-25] MEDS ORDERED: LEVO500T90 PO (10:01)
[2021-08-25 14:00] VITALS: BP 96/46
[2021-08-25 18:00] VITALS: BP 123/44
[2021-08-25 22:00] VITALS: BP 95/44
[2021-08-26 02:00] VITALS: BP 93/43
[2021-08-26] MEDS: piperacillin/tazo 3.375gm/50ml 50 ML IV SCH ×3 (02:20→15:40)
--- NOTE | 2021-08-26 05:45 | NUR ---
Mr Villalba has been assessed as indicated. He has been noted to be both pleasant and cooperative colostomy has been drained by staff and he uses the urinal without assistance. He continues to deny pain, and has tolerated IVF well. He is presently resting quietly and will continue to be monitoring
[2021-08-26 06:00] VITALS: BP 97/41
--- NOTE | 2021-08-26 06:00 | NUR ---
Problems reprioritized. Patient report given, questions answered & plan of care reviewed with VAMSHI Crespo
[2021-08-26 06:29] LABS: BASOPHILS % (AUTO) 0.6 % (0-1); EOSINOPHILS # (AUTO) 0.1 X10'3 (0-0.9); EOSINOPHILS % (AUTO) 2.2 % (0-6); HEMATOCRIT 29.2 % (42.0-52.0); HEMOGLOBIN 9.6 g/dl (14.0-17.9); LYMPHOCYTES # (AUTO) 1.5 X10'3 (1.1-4.8); LYMPHOCYTES % (AUTO) 30.9 % (21-51); MEAN CORPUSCULAR HEMOGLOBIN 26.9 PG (27.0-31.0); MEAN CORPUSCULAR HGB CONC 32.8 g/dL (33.0-36.5); MEAN CORPUSCULAR VOLUME 82.2 FL (78-98); MEAN PLATELET VOLUME 7.8 FL (7.4-10.4); MONOCYTES # (AUTO) 0.4 X10'3 (0-0.9); MONOCYTES % (AUTO) 8.1 % (2-12); NEUTROPHILS # (AUTO) 2.7 X10'3 (1.8-7.7); NEUTROPHILS % (AUTO) 58.2 % (42-75); PLATELET COUNT 202 X10'3 (140-440); RED BLOOD COUNT 3.55 X10'6 (4.70-6.10); RED CELL DISTRIBUTION WIDTH 19.4 % (11.5-14.5); WHITE BLOOD COUNT 4.7 X10'3 (4.5-11.0)
[2021-08-26 06:35] LABS: ALANINE AMINOTRANSFERASE 18 U/L (12-78); ALBUMIN 1.6 G/DL (3.4-5.0); ALBUMIN/GLOBULIN RATIO 0.4 (1.1-1.5); ALKALINE PHOSPHATASE 97 IU/L (46-116); ANION GAP 10 (8-16); ASPARTATE AMINO TRANSFERASE 21 U/L (10-37); BILIRUBIN,TOTAL 0.3 MG/DL (0.1-1.0); BLOOD UREA NITROGEN 12 MG/DL (7-18); BUN/CREATININE RATIO 8.8 (5.4-32.0); CALCIUM 7.7 MG/DL (8.5-10.1); CHLORIDE 109 MMOL/L (99-107); CREATININE 1.36 MG/DL (0.60-1.10); GLUCOSE 97 MG/DL (70-104); MAGNESIUM 1.5 MG/DL (1.5-2.4); POTASSIUM 3.1 MMOL/L (3.5-5.1); SODIUM 142 MMOL/L (135-145); TOTAL CARBON DIOXIDE 22.8 MMOL/L (24-32); TOTAL PROTEIN 5.2 G/DL (6.4-8.2); eGFR 50 ML/MIN
[2021-08-26 07:05] LABS: ANISOCYTOSIS 2+; PLATELET ESTIMATE NORMAL; POLYCHROMASIA 1+; SCHISTOCYTES FEW; TOTAL CELLS COUNTED 100
[2021-08-26 07:06] LABS: SMUDGE CELLS FEW
--- NOTE | 2021-08-26 07:12 | NUR ---
Patient in room MED 318. I have received report from LEOBARDO ROSADO, and had the opportunity to ask questions and assume patient care.
[2021-08-26] MEDS: aspirin 81mg, enteric-coated 1 TAB TABLET.DR PO SCH (07:40)
[2021-08-26] MEDS: cyanocobalamin 500mcg tablet PO SCH (07:40)
[2021-08-26] MEDS: pantoprazole 40mg Tablet.DR PO SCH (07:40)
[2021-08-26] MEDS: docusate sod 100mg capsule PO SCH ×2 (07:40→21:47)
[2021-08-26] MEDS: mineral oil/petrolatum, white cream 113gm jar TP SCH (07:40)
[2021-08-26] MEDS: folic acid 0.4mg tablet PO SCH (07:40)
[2021-08-26] MEDS: heparin, porcine 5000 units/ml vial SQ SCH ×2 (07:41→21:48)
[2021-08-26] MEDS: K and/or MAG REPLACEMENT MC SCH (07:42)
[2021-08-26] MEDS: normal saline 1000ml 1,000 ML IV SCH ×2 (07:45→22:07)
--- NOTE | 2021-08-26 07:57 | NUR ---
PAGE SENT Message: [id number], MARY ADAMSON, PT'S K-3.1. MAY I HAVE A POTASSIUM REPLACEMENT ORDER? THANK YOU, VAMSHI Will [phone]
[2021-08-26 11:00] VITALS: BP 98/57
--- NOTE | 2021-08-26 11:55 | NUR ---
PAGE SENT PAGER ID: [phone] MESSAGE: [phone], EDUARDO MORALES, PT K-3.1, REPLACEMENT ORDERS PLEASE. THANK YOU, VAMSHI [id number]
--- NOTE | 2021-08-26 13:35 | NUR ---
Patient in room PCU 3018. I have received report from VAMSHI BOOTH and had the opportunity to ask questions and assume patient care.
[2021-08-26] MEDS ORDERED: potassium Cl 20 mEq SR tablet PO PRN ×2 (13:55)
[2021-08-26] MEDS ORDERED: potassium CL 10mEq/100ml bag 100 ML IV PRN (13:55)
[2021-08-26] MEDS ORDERED: magnesium Cl slow-release 64mg tablet PO PRN (13:55)
[2021-08-26] MEDS ORDERED: magnesium 2GM in 50ml NS 50 ML IV PRN (13:55)
[2021-08-26] MEDS ORDERED: magnesium 4gm in 100ml NS 100 ML IV PRN (13:55)
--- NOTE | 2021-08-26 14:00 | NUR ---
Problems reprioritized. Patient report given, questions answered & plan of care reviewed with LEOBARDO MARKS.
--- NOTE | 2021-08-26 14:41 | NUR ---
drsg change to midline inc completed. washed wound with serial h20. wet to dry drsg applied. pt tolerated well. old drsg with singh arguelles discharge.
[2021-08-26 14:55] LABS: MAGNESIUM 1.5 MG/DL (1.5-2.4); POTASSIUM 3.4 MMOL/L (3.5-5.1)
[2021-08-26 15:00] VITALS: BP 102/75
[2021-08-26 18:00] VITALS: BP 96/48
--- NOTE | 2021-08-26 19:14 | NUR ---
Problems reprioritized. Patient report given, questions answered & plan of care reviewed with za singh. Addendum: 08/26/21 at 1915 by Radha Dyer RN Amended: Links added.
[2021-08-26] MEDS ORDERED: K and/or MAG REPLACEMENT MC SCH (20:00)
[2021-08-26] MEDS: HYDROcodone/acetaminophen 5mg/325mg tablet PO PRN (21:49)
[2021-08-26 22:00] VITALS: BP 92/47
[2021-08-27] MEDS: piperacillin/tazo 3.375gm/50ml 50 ML IV SCH ×2 (00:16→08:00)
[2021-08-27 02:00] VITALS: BP 126/68
[2021-08-27] MEDS: normal saline 1000ml 1,000 ML IV SCH ×2 (02:45→09:30)
--- NOTE | 2021-08-27 06:45 | NUR ---
Patient in room PCU 3018A. I have received report from LEOBARDO GUTIERREZ and had the opportunity to ask questions and assume patient care.
[2021-08-27 06:49] LABS: BASOPHILS % (AUTO) 0.7 % (0-1); EOSINOPHILS # (AUTO) 0.1 X10'3 (0-0.9); EOSINOPHILS % (AUTO) 2.7 % (0-6); HEMATOCRIT 31.4 % (42.0-52.0); HEMOGLOBIN 10.4 g/dl (14.0-17.9); LYMPHOCYTES # (AUTO) 1.5 X10'3 (1.1-4.8); LYMPHOCYTES % (AUTO) 31.4 % (21-51); MEAN CORPUSCULAR HEMOGLOBIN 27.4 PG (27.0-31.0); MEAN PLATELET VOLUME 7.8 FL (7.4-10.4); MONOCYTES # (AUTO) 0.4 X10'3 (0-0.9); MONOCYTES % (AUTO) 7.5 % (2-12); NEUTROPHILS # (AUTO) 2.7 X10'3 (1.8-7.7); NEUTROPHILS % (AUTO) 57.7 % (42-75); PLATELET COUNT 185 X10'3 (140-440); RED BLOOD COUNT 3.78 X10'6 (4.70-6.10); RED CELL DISTRIBUTION WIDTH 20.1 % (11.5-14.5); WHITE BLOOD COUNT 4.8 X10'3 (4.5-11.0)
[2021-08-27 06:54] LABS: ALANINE AMINOTRANSFERASE 14 U/L (12-78); ALBUMIN 1.7 G/DL (3.4-5.0); ALBUMIN/GLOBULIN RATIO 0.5 (1.1-1.5); ALKALINE PHOSPHATASE 96 IU/L (46-116); ANION GAP 8 (8-16); ASPARTATE AMINO TRANSFERASE 16 U/L (10-37); BILIRUBIN,TOTAL 0.2 MG/DL (0.1-1.0); BLOOD UREA NITROGEN 8 MG/DL (7-18); BUN/CREATININE RATIO 5.3 (5.4-32.0); CALCIUM 8.1 MG/DL (8.5-10.1); CHLORIDE 109 MMOL/L (99-107); CREATININE 1.52 MG/DL (0.60-1.10); GLUCOSE 103 MG/DL (70-104); MAGNESIUM 1.5 MG/DL (1.5-2.4); POTASSIUM 3.4 MMOL/L (3.5-5.1); SODIUM 142 MMOL/L (135-145); TOTAL CARBON DIOXIDE 24.6 MMOL/L (24-32); TOTAL PROTEIN 5.2 G/DL (6.4-8.2); eGFR 44 ML/MIN
[2021-08-27 07:00] VITALS: BP 109/40
--- NOTE | 2021-08-27 07:01 | NUR ---
Stool sent f/OB. Problems reprioritized. Patient report given, questions answered & plan of care reviewed with Justine BOOTH.
[2021-08-27] MEDS: docusate sod 100mg capsule PO SCH (08:00)
[2021-08-27] MEDS: heparin, porcine 5000 units/ml vial SQ SCH (08:00)
[2021-08-27 08:56] LABS: OCCULT BLOOD STOOL NEGATIVE (Neg)
--- NOTE | 2021-08-27 10:11 | NUR ---
Initial: Pt admitted w/ probable gallbladder fossa abscess, CT scan of the abdomen and pelvis showed multiple fluid collections consistent with abscesses per EMR. Pt noted w/ abd surgical wound, likely from multiple ex laps previous admit 08/05. Pt currently on Full liquid diet since 08/25 w/ mostly 100% intake of meals partially meeting needs. Recommend advancing to Regular diet as medically indicated. Noted w/ 450ml stool output this morning. Will continue to monitor and make recommendations as appropriate. Recs: 1. Advance to Regular diet as medically indicated 2. Bowel care per MD 3. Scaled wt this admit, subsequent weekly wts Addendum: 08/27/21 at [address] Amended: Links added.
[2021-08-27] MEDS: aspirin 81mg, enteric-coated 1 TAB TABLET.DR PO SCH (13:33)
[2021-08-27] MEDS: folic acid 0.4mg tablet PO SCH (13:33)
[2021-08-27] MEDS: cyanocobalamin 500mcg tablet PO SCH (13:33)
[2021-08-27] MEDS: pantoprazole 40mg Tablet.DR PO SCH (13:44)
--- NOTE | 2021-08-27 16:45 | NUR ---
PATIENT STABLE AND APPROPRIATE FOR DISCHARGE, TELE REMOVED, PICC LINE REMOVED, EDUCATION GIVEN, PRESCRIPTION FOR NEW MED SENT WITH PATIENT, ALL BELONGINGS SENT WITH PATIENT, PATIENT TAKEN TO LOBBY BY WHEELCHAIR TO AN AWAITING CAR WHERE SON-IN-LAW WILL TAKE PATIENT HOME
== END 2021-08-27 16:45 | disposition home health service (06) | DRG 862 ==
LOC: ER 18:42 → UNDOADMIN 22:46 → ED HOLD 22:46 → MED 3N 08-23 07:03 → ED HOLD 08-23 07:03 → MED 3N 08-23 08:29 → PCU 3S 08-26 10:35
PROVIDERS: ADMIT Family Medicine; ATTEND Family Medicine
PROC: BW211ZZ Computerized Tomography (CT Scan) of Abdomen and Pelvis using Low Osmolar Contrast (ICD-10-PCS; principal; 2021-08-24)
DX: T81.43XA Infection following a procedure, organ and space surgical site, initial encounter (principal); K65.1 Peritoneal abscess; J90 Pleural effusion, not elsewhere classified; E87.6 Hypokalemia; D64.9 Anemia, unspecified; E86.1 Hypovolemia; E88.09 Other disorders of plasma-protein metabolism, not elsewhere classified; I10 Essential (primary) hypertension; Z90.49 Acquired absence of other specified parts of digestive tract; Z93.3 Colostomy status; Z79.899 Other long term (current) drug therapy; Z79.82 Long term (current) use of aspirin
CPT/HCPCS: 36415; 74176; 74177; 80053; 81001; 82272; 83036; 83690; 83735; 83880; 84100; 84132; 85007; 85008; 85025; 85610; 85730; 97116; 97161; 97530; 99285; G0378; J1644; J2543; J3480; J7030; Q9963; Q9967

== ENCOUNTER 2021-10-18 13:29 | Inpatient (IN) | payer OTHER, MEDICARE ==
[~2021-10-18] VITALS: Ht 170.2 cm; Wt 63.2 kg
[~2021-10-18 13:29] MED LIST changes: +CYAN500T9 PO; -FERR-119 PO; +FOLI0.4T14 PO; +MINE120C5 TP
[2021-10-18 14:20] LABS: BASOPHILS % (AUTO) 0.3 % (0-1); EOSINOPHILS # (AUTO) 0.1 X10'3 (0-0.9); EOSINOPHILS % (AUTO) 0.4 % (0-6); HEMATOCRIT 37.5 % (42.0-52.0); LYMPHOCYTES # (AUTO) 1.7 X10'3 (1.1-4.8); LYMPHOCYTES % (AUTO) 13.8 % (21-51); MEAN CORPUSCULAR HGB CONC 32.1 g/dL (33.0-36.5); MEAN CORPUSCULAR VOLUME 87.2 FL (78-98); MEAN PLATELET VOLUME 7.1 FL (7.4-10.4); MONOCYTES # (AUTO) 0.9 X10'3 (0-0.9); NEUTROPHILS # (AUTO) 9.8 X10'3 (1.8-7.7); NEUTROPHILS % (AUTO) 78.5 % (42-75); PLATELET COUNT 333 X10'3 (140-440); RED CELL DISTRIBUTION WIDTH 19.6 % (11.5-14.5); WHITE BLOOD COUNT 12.5 X10'3 (4.5-11.0)
[2021-10-18] MEDS ORDERED: iohexol 300mg/ml 100ml inj. ONE (14:30)
[2021-10-18 14:40] LABS: ANISOCYTOSIS 2+; PLATELET ESTIMATE NORMAL
[2021-10-18 14:44] LABS: ALANINE AMINOTRANSFERASE 18 U/L (12-78); ALBUMIN 2.8 G/DL (3.4-5.0); ALBUMIN/GLOBULIN RATIO 0.7 (1.1-1.5); ALKALINE PHOSPHATASE 67 IU/L (46-116); ANION GAP 11 (8-16); ASPARTATE AMINO TRANSFERASE 11 U/L (10-37); BILIRUBIN,TOTAL 0.4 MG/DL (0.1-1.0); BLOOD UREA NITROGEN 26 MG/DL (7-18); BUN/CREATININE RATIO 14.8 (5.4-32.0); CALCIUM 9.2 MG/DL (8.5-10.1); CHLORIDE 104 MMOL/L (99-107); CREATININE 1.76 MG/DL (0.60-1.10); GLUCOSE 107 MG/DL (70-104); LIPASE 52 U/L (73-393); POTASSIUM 3.9 MMOL/L (3.5-5.1); SODIUM 139 MMOL/L (135-145); TOTAL CARBON DIOXIDE 23.7 MMOL/L (24-32); TOTAL PROTEIN 6.8 G/DL (6.4-8.2); eGFR 37 ML/MIN
[2021-10-18] MEDS ORDERED: normal saline 1000ml 1,000 ML IV ONE (15:45)
[2021-10-18] MEDS ORDERED: piperacillin/tazo 3.375gm/50ml 50 ML IV ONE (15:45)
[2021-10-18] MEDS ORDERED: morphine 2 MG/ML inj. syringe IV PRN ×2 (16:20)
[2021-10-18] MEDS ORDERED: mag hydrox/Alum hydrox/simeth 30ml oral suspension PO PRN (16:20)
[2021-10-18] MEDS ORDERED: magnesium 2GM in 50ml NS 50 ML IV PRN (16:20)
[2021-10-18] MEDS ORDERED: potassium Cl 20 mEq SR tablet PO PRN ×2 (16:20)
[2021-10-18] MEDS ORDERED: ondansetron/PF 4mg/2ml inj IV PRN (16:20)
[2021-10-18] MEDS ORDERED: potassium CL 10mEq/100ml bag 100 ML IV PRN (16:20)
[2021-10-18] MEDS ORDERED: acetaminophen 325mg tablet PO PRN (16:20)
[2021-10-18] MEDS ORDERED: magnesium 4gm in 100ml NS 100 ML IV PRN (16:20)
--- NOTE | 2021-10-18 16:37 | NUR ---
DR. OZUNA IS AT THE BEDSIDE.
[2021-10-18] MEDS ORDERED: MULT-1085 PO (17:07)
[2021-10-18] MEDS: normal saline 1000ml 1,000 ML IV SCH (17:20)
[2021-10-18] MEDS: K and/or MAG REPLACEMENT MC SCH (20:00)
--- NOTE | 2021-10-18 20:05 | NUR ---
PATIENT ADMITTED TO 358B FROM ER FOR ANASTOMOTIC LEAK. PLACED COMFORTABLE IN BED. VITAL SIGNS TAKEN AND RECORDED.
[2021-10-18 20:39] VITALS: BP 107/48
[2021-10-18] MEDS: diatr meglu/diatrizoate 30ml oral sol.-(3 dose) bottle PO SCH (21:18)
[2021-10-18] MEDS: enoxaparin 40mg/0.4ml syringe SQ SCH (21:22)
[2021-10-19] VITALS: BP 102/45
[2021-10-19] MEDS: piperacillin/tazo 4.5gm/100ml 100 ML IV SCH ×3 (00:55→17:25)
[2021-10-19] MEDS: normal saline 1000ml 1,000 ML IV SCH ×3 (02:39→22:20)
[2021-10-19 06:14] LABS: BASOPHILS % (AUTO) 0.3 % (0-1); EOSINOPHILS # (AUTO) 0.1 X10'3 (0-0.9); EOSINOPHILS % (AUTO) 0.6 % (0-6); HEMATOCRIT 33.7 % (42.0-52.0); HEMOGLOBIN 10.8 g/dl (14.0-17.9); LYMPHOCYTES # (AUTO) 1.9 X10'3 (1.1-4.8); LYMPHOCYTES % (AUTO) 14.4 % (21-51); MEAN CORPUSCULAR HEMOGLOBIN 28.1 PG (27.0-31.0); MEAN CORPUSCULAR VOLUME 87.6 FL (78-98); MEAN PLATELET VOLUME 7.6 FL (7.4-10.4); MONOCYTES # (AUTO) 0.8 X10'3 (0-0.9); MONOCYTES % (AUTO) 6.6 % (2-12); NEUTROPHILS # (AUTO) 10.1 X10'3 (1.8-7.7); NEUTROPHILS % (AUTO) 78.1 % (42-75); PLATELET COUNT 327 X10'3 (140-440); RED BLOOD COUNT 3.84 X10'6 (4.70-6.10); RED CELL DISTRIBUTION WIDTH 19.7 % (11.5-14.5); WHITE BLOOD COUNT 12.9 X10'3 (4.5-11.0)
[2021-10-19 06:23] LABS: ALANINE AMINOTRANSFERASE 12 U/L (12-78); ALBUMIN 2.2 G/DL (3.4-5.0); ALBUMIN/GLOBULIN RATIO 0.7 (1.1-1.5); ALKALINE PHOSPHATASE 52 IU/L (46-116); ANION GAP 12 (8-16); ASPARTATE AMINO TRANSFERASE 10 U/L (10-37); BILIRUBIN,TOTAL 0.4 MG/DL (0.1-1.0); BLOOD UREA NITROGEN 20 MG/DL (7-18); BUN/CREATININE RATIO 13.7 (5.4-32.0); CALCIUM 8.5 MG/DL (8.5-10.1); CHLORIDE 108 MMOL/L (99-107); CREATININE 1.46 MG/DL (0.60-1.10); GLUCOSE 98 MG/DL (70-104); MAGNESIUM 1.8 MG/DL (1.5-2.4); POTASSIUM 3.6 MMOL/L (3.5-5.1); SODIUM 141 MMOL/L (135-145); TOTAL PROTEIN 5.5 G/DL (6.4-8.2); eGFR 46 ML/MIN
--- NOTE | 2021-10-19 06:27 | NUR ---
Problems reprioritized. Patient report given, questions answered & plan of care reviewed with DAVID BOOTH.
[2021-10-19 07:00] VITALS: BP 101/45
[2021-10-19] MEDS: diatr meglu/diatrizoate 30ml oral sol.-(3 dose) bottle PO SCH ×2 (07:40→10:34)
[2021-10-19] MEDS: K and/or MAG REPLACEMENT MC SCH ×2 (08:00→20:00)
[2021-10-19] MEDS: cyanocobalamin 500mcg tablet PO SCH (09:49)
[2021-10-19] MEDS: multivitamins, therapeutics tablet PO SCH (09:49)
[2021-10-19] MEDS: folic acid 0.4mg tablet PO SCH (09:50)
[2021-10-19 11:00] VITALS: BP 96/42
--- NOTE | 2021-10-19 11:35 | NUR ---
PAGER ID: [phone] MESSAGE: [phone] Cipriano Villalba: [facility] is trying to get ahold of you AKASH. Call back number is [phone] Chambers. thanks!
--- NOTE | 2021-10-19 14:00 | NUR ---
Patient in room SOTO 358. I have received report from LEOBARDO Stanley and had the opportunity to ask questions and assume patient care.
--- NOTE | 2021-10-19 14:03 | NUR ---
Problems reprioritized. Patient report given, questions answered & plan of care reviewed with LEOBARDO Cabrera.
[2021-10-19] MEDS: fluconazole 100mg tablet PO SCH (15:11)
[2021-10-19 18:00] VITALS: BP 125/52
--- NOTE | 2021-10-19 18:49 | NUR ---
Problems reprioritized. Patient report given, questions answered & plan of care reviewed with LEOBARDO Walters.
--- NOTE | 2021-10-19 18:50 | NUR ---
Patient in room SOTO 358. I have received report from MALCOLM BOOTH and had the opportunity to ask questions and assume patient care.
[2021-10-19] MEDS: enoxaparin 40mg/0.4ml syringe SQ SCH (19:53)
[2021-10-20 00:01] VITALS: BP 96/48
[2021-10-20] MEDS: piperacillin/tazo 4.5gm/100ml 100 ML IV SCH ×4 (00:25→23:47)
[2021-10-20] MEDS: normal saline 1000ml 1,000 ML IV SCH ×2 (00:25→14:01)
[2021-10-20 06:19] LABS: BASOPHILS % (AUTO) 0.7 % (0-1); EOSINOPHILS # (AUTO) 0.2 X10'3 (0-0.9); EOSINOPHILS % (AUTO) 3.2 % (0-6); HEMATOCRIT 30.9 % (42.0-52.0); HEMOGLOBIN 10.3 g/dl (14.0-17.9); LYMPHOCYTES # (AUTO) 1.8 X10'3 (1.1-4.8); LYMPHOCYTES % (AUTO) 25.5 % (21-51); MEAN CORPUSCULAR HEMOGLOBIN 28.9 PG (27.0-31.0); MEAN CORPUSCULAR HGB CONC 33.4 g/dL (33.0-36.5); MEAN CORPUSCULAR VOLUME 86.4 FL (78-98); MEAN PLATELET VOLUME 7.2 FL (7.4-10.4); MONOCYTES # (AUTO) 0.5 X10'3 (0-0.9); MONOCYTES % (AUTO) 7.3 % (2-12); NEUTROPHILS # (AUTO) 4.5 X10'3 (1.8-7.7); NEUTROPHILS % (AUTO) 63.3 % (42-75); PLATELET COUNT 327 X10'3 (140-440); RED BLOOD COUNT 3.58 X10'6 (4.70-6.10); RED CELL DISTRIBUTION WIDTH 19.5 % (11.5-14.5); WHITE BLOOD COUNT 7.1 X10'3 (4.5-11.0)
--- NOTE | 2021-10-20 06:22 | NUR ---
Problems reprioritized. Patient report given, questions answered & plan of care reviewed with MALCOLM BOOTH.
[2021-10-20 06:32] LABS: ALANINE AMINOTRANSFERASE 10 U/L (12-78); ALBUMIN/GLOBULIN RATIO 0.6 (1.1-1.5); ALKALINE PHOSPHATASE 47 IU/L (46-116); ANION GAP 9 (8-16); ASPARTATE AMINO TRANSFERASE 9 U/L (10-37); BILIRUBIN,TOTAL 0.3 MG/DL (0.1-1.0); BLOOD UREA NITROGEN 14 MG/DL (7-18); BUN/CREATININE RATIO 9.4 (5.4-32.0); CALCIUM 8.4 MG/DL (8.5-10.1); CHLORIDE 110 MMOL/L (99-107); CREATININE 1.49 MG/DL (0.60-1.10); GLUCOSE 93 MG/DL (70-104); MAGNESIUM 1.8 MG/DL (1.5-2.4); POTASSIUM 3.4 MMOL/L (3.5-5.1); SODIUM 143 MMOL/L (135-145); TOTAL CARBON DIOXIDE 23.7 MMOL/L (24-32); TOTAL PROTEIN 5.3 G/DL (6.4-8.2); eGFR 45 ML/MIN
--- NOTE | 2021-10-20 06:45 | NUR ---
Patient in room SOTO 358. I have received report from LEOBARDO Walters and had the opportunity to ask questions and assume patient care.
[2021-10-20 08:00] VITALS: BP 104/44
[2021-10-20] MEDS: K and/or MAG REPLACEMENT MC SCH ×2 (08:00→19:33)
[2021-10-20] MEDS: cyanocobalamin 500mcg tablet PO SCH (08:28)
[2021-10-20] MEDS: multivitamins, therapeutics tablet PO SCH (08:28)
[2021-10-20] MEDS: folic acid 0.4mg tablet PO SCH (08:28)
[2021-10-20] MEDS: fluconazole 100mg tablet PO SCH (08:29)
[2021-10-20 11:00] VITALS: BP 92/48
--- NOTE | 2021-10-20 15:05 | NUR ---
WOUND INFECTION EDUCATION PROVIDED BY WOUND CARE 1. Patient instructed to call their primary doctor, or go the ED immediately if any of the following symptoms occur: * Increased pain in wound * Increase in drainage from the wound * Redness in the skin surrounding the wound * Warmth in the skin surrounding the wound * Bleeding from the wound * Temperature of 101 or greater 2. If any of these occur while in the hospital tell a nurse immediately. Addendum: 10/20/21 at 1506 by Sarahi Murphy RN Amended: Links added.
--- NOTE | 2021-10-20 18:20 | NUR ---
Problems reprioritized. Patient report given, questions answered & plan of care reviewed with LEOBARDO Gil.
[2021-10-20] MEDS: enoxaparin 40mg/0.4ml syringe SQ SCH (19:21)
[2021-10-21] VITALS: BP 96/48
[2021-10-21] MEDS: normal saline 1000ml 1,000 ML IV SCH (03:41)
[2021-10-21 06:01] LABS: EOSINOPHILS # (AUTO) 0.2 X10'3 (0-0.9); EOSINOPHILS % (AUTO) 4.7 % (0-6); HEMATOCRIT 32.3 % (42.0-52.0); HEMOGLOBIN 10.5 g/dl (14.0-17.9); LYMPHOCYTES # (AUTO) 1.5 X10'3 (1.1-4.8); LYMPHOCYTES % (AUTO) 29.8 % (21-51); MEAN CORPUSCULAR HEMOGLOBIN 28.3 PG (27.0-31.0); MEAN CORPUSCULAR HGB CONC 32.3 g/dL (33.0-36.5); MEAN CORPUSCULAR VOLUME 87.6 FL (78-98); MEAN PLATELET VOLUME 7.3 FL (7.4-10.4); MONOCYTES # (AUTO) 0.4 X10'3 (0-0.9); MONOCYTES % (AUTO) 8.4 % (2-12); NEUTROPHILS # (AUTO) 2.8 X10'3 (1.8-7.7); NEUTROPHILS % (AUTO) 56.1 % (42-75); PLATELET COUNT 339 X10'3 (140-440); RED BLOOD COUNT 3.69 X10'6 (4.70-6.10); WHITE BLOOD COUNT 5.1 X10'3 (4.5-11.0)
[2021-10-21 06:16] LABS: ALANINE AMINOTRANSFERASE 10 U/L (12-78); ALBUMIN/GLOBULIN RATIO 0.6 (1.1-1.5); ALKALINE PHOSPHATASE 43 IU/L (46-116); ANION GAP 8 (8-16); ASPARTATE AMINO TRANSFERASE 11 U/L (10-37); BILIRUBIN,TOTAL 0.3 MG/DL (0.1-1.0); BLOOD UREA NITROGEN 11 MG/DL (7-18); BUN/CREATININE RATIO 7.1 (5.4-32.0); CALCIUM 8.5 MG/DL (8.5-10.1); CHLORIDE 112 MMOL/L (99-107); CREATININE 1.54 MG/DL (0.60-1.10); GLUCOSE 95 MG/DL (70-104); MAGNESIUM 1.6 MG/DL (1.5-2.4); POTASSIUM 3.7 MMOL/L (3.5-5.1); SODIUM 144 MMOL/L (135-145); TOTAL CARBON DIOXIDE 24.4 MMOL/L (24-32); TOTAL PROTEIN 5.2 G/DL (6.4-8.2); eGFR 43 ML/MIN
[2021-10-21 07:01] LABS: ANISOCYTOSIS 2+; PLATELET ESTIMATE NORMAL; POIKILOCYTOSIS FEW
[2021-10-21] MEDS: folic acid 0.4mg tablet PO SCH (07:54)
[2021-10-21] MEDS: cyanocobalamin 500mcg tablet PO SCH (07:54)
[2021-10-21] MEDS: piperacillin/tazo 4.5gm/100ml 100 ML IV SCH (07:55)
[2021-10-21] MEDS: multivitamins, therapeutics tablet PO SCH (07:55)
[2021-10-21] MEDS: fluconazole 100mg tablet PO SCH (07:55)
[2021-10-21 08:00] VITALS: BP 99/50
[2021-10-21] MEDS: K and/or MAG REPLACEMENT MC SCH (08:00)
[2021-10-21] MEDS ORDERED: AMOX-580 PO (10:07)
[2021-10-21 12:29] VITALS: BP 123/54
== END 2021-10-21 13:45 | disposition home health service (06) | DRG 371 ==
LOC: ER 13:29 → ED HOLD 16:20 → UNDOADMIN 16:20 → ED HOLD 17:18 → SUR 3N 19:52
PROVIDERS: ADMIT Family Medicine; ATTEND Family Medicine
PROC: BW211ZZ Computerized Tomography (CT Scan) of Abdomen and Pelvis using Low Osmolar Contrast (ICD-10-PCS; principal; 2021-10-18)
DX: K63.0 Abscess of intestine (principal); N17.0 Acute kidney failure with tubular necrosis; L02.211 Cutaneous abscess of abdominal wall; K52.9 Noninfective gastroenteritis and colitis, unspecified; Z66 Do not resuscitate; E86.0 Dehydration; I48.0 Paroxysmal atrial fibrillation; N18.30 Chronic kidney disease, stage 3 unspecified; Z80.42 Family history of malignant neoplasm of prostate; Z83.3 Family history of diabetes mellitus; Z85.038 Personal history of other malignant neoplasm of large intestine; Z79.899 Other long term (current) drug therapy; Z90.49 Acquired absence of other specified parts of digestive tract; E87.6 Hypokalemia; Z79.82 Long term (current) use of aspirin
CPT/HCPCS: 36415; 74176; 74177; 80053; 83605; 83690; 83735; 84145; 85008; 85025; 87040; 87070; 87075; 87076; 87077; 87081; 87102; 87185; 87186; 96365; 97161; 97530; 99285; G0378; J1650; J2543; J7030; Q9963; Q9967